=== PATIENT | male | born 1960 | race Caucasian/White ===

== ENCOUNTER 2021-05-03 12:56 | Inpatient (IN) | payer SELFPAY ==
[2021-05-03] MEDS ORDERED: Famotidine 20 MG/2 ML SDV IV PRN (14:00)
[2021-05-03] MEDS ORDERED: diphenhydrAMINE 50 MG/ML SDV IVPUSH PRN (14:00)
[2021-05-03] MEDS ORDERED: EPINEPHrine 1 MG/ML SDV IM PRN (14:00)
[2021-05-03] MEDS ORDERED: Acetaminophen 325 MG Tab PO PRN ×2 (14:00→14:54)
[2021-05-03] MEDS ORDERED: methylPREDNISolone Sodium Succinate 125 MG/2 ML SDV IVPUSH PRN (14:00)
--- NOTE | 2021-05-03 14:52 | PCM.HP.2 ---
H&P History of Present Illness - General Date of Service: 05/03/21 Admit Problem/Dx: Admission Diagnosis/Problem Admission Diagnosis/Problem Hypoxia Source of Information: Patient, RN Notes Reviewed History Limitations: Reports: No Limitations - History of Present Illness Initial Comments - Free Text/Narative: Mr. Nevarez is a 60-year-old gentleman who was admitted through the caregivers non medical unit with a 6-day history of progressive weakness and shortness of breath secondary to COVID-19 infection. He first experienced symptoms on April 27 with cough and congestion as well as myalgias. On the third he did take a [id number] Covid test that was positive. Symptoms progressed through the weekend and he arranged for monoclonal antibody infusion today in the outpatient area. On evaluation when he came in for an monoclonal antibody infusion he was found to be hypoxic with oxygen saturation of 81% on room air and while at rest. Monoclonal antibody infusion was canceled and I was asked to see him for an assessment for hospital admission. Laboratory tests obtained on admission included a normal white blood cell count, marked elevation in CRP, mild elevat ion in D-dimer. Chest x-ray shows bibasilar groundglass infiltrates consistent with COVID-19 infection. Generalized Pain Score (Numeric/FACES): 9 - Related Data Allergies/Adverse Reactions: Allergies Allergy/AdvReac Type Severity Reaction Status Date / Time No Known Allergies Allergy Verified 05/03/21 13:13 Home Medications: Home Meds Albuterol [Proventil Neb Soln] 3 ml INH QID PRN 05/03/21 [History] Omeprazole 40 mg PO DAILY 05/03/21 [History] Past Medical History Respiratory History: Reports: Asthma - Past Surgical History HEENT Surgical History: Reports: Other (See Below) Other HEENT Surgeries/Procedures: polyps in sinuses Social & Family History - Tobacco Use Tobacco Use Status *Q: Never Tobacco User - Caffeine Use Caffeine Use: Reports: Soda - Alcohol Use Days Per Week of Alcohol Use: 2 Number of Drinks Per Day: 2 Total Drinks Per Week: 4 - Recreational Drug Use Recreational Drug Use: No H&P Review of Systems - Review of Systems: Review Of Systems: See Below General: Reports: Fever, Chills, Malaise, Weakness, Fatigue, Decreased Appetite HEENT: Reports: Headaches, Sinus Congestion. Denies: Ear Pain, Eye Pain, Sore Throat Pulmonary: Reports: Shortness of Breath, Cough. Denies: Wheezing, Pleuritic Chest Pain, Sputum, Hemoptysis Cardiovascular: Reports: Dyspnea on Exertion. Denies: Chest Pain, Palpitations, Orthopnea, PND, Edema, Lightheadedness Gastrointestinal: Reports: No Symptoms Genitourinary: Reports: No Symptoms Musculoskeletal: Reports: Back Pain, Muscle Pain, Muscle Stiffness. Denies: Joint Swelling Skin: Reports: No Symptoms Psychiatric: Reports: No Symptoms Neurological: Reports: No Symptoms Hematologic/Lymphatic: Reports: No Symptoms Immunologic: Reports: No Symptoms Exam - Exam Exam: See Below - Vital Signs Vital Signs: Last Vital Signs Temp 214.2 F H 05/03/21 13:53 Pulse 114 H 05/03/21 14:08 Resp 24 H 05/03/21 14:08 BP 116/59 L 05/03/21 14:08 Pulse Ox 91 L 05/03/21 14:08 Weight: 245 lb - Exam Quality Assessment: Supplemental Oxygen, DVT Prophylaxis General: Alert, Oriented, Cooperative, Moderate Distress HEENT: Conjunctiva Clear, Hearing Intact, Mucosa Moist & Goree, Normal Nasal Septum, Posterior Pharynx Clear, Pupils Equal Neck: Supple, Trachea Midline, +2 Carotid Pulse wo Bruit Lungs: Crackles. No: Rales, Rhonchi, Wheezing Cardiovascular: Regular Rhythm, Normal S1, Normal S2, Tachycardia. No: Systolic Murmur, Diastolic Murmur GI/Abdominal Exam: Soft, Non-Tender, No Organomegaly, No Distention Back Exam: Normal Inspection, Full Range of Motion, Vertebral Tenderness Extremities: Non-Tender, No Pedal Edema Skin: Warm, Dry, Intact Neurological: Cranial Nerves Intact, Strength Equal Bilateral, Normal Speech, Normal Tone, Sensation Intact. No: Focal Deficit Neuro Extensive - Mental Status: Alert, Oriented x3, Normal Mood/Affect, Normal Cognition, Memory Intact - Patient Data Result Diagrams: 05/03/21 15:12 05/03/21 15:12 Sepsis Event Note - Focused Exam Vital Signs: Vital Signs Temp Pulse Resp BP Pulse Ox 05/03/21 14:08 114 H 24 H 116/59 L 91 L 05/03/21 13:53 214.2 F H 121 H 16 141/60 H 91 L 05/03/21 13:15 24 H 83 L 05/03/21 13:11 214.2 F H 129 H 16 120/63 88 L *Q Meaningful Use (ADM) - VTE Risk Assess *Q Each Risk Factor Represents 1 Point: Age 41 - 59 years, Obesity ( BMI > 25 kg/m2), Serious lung disease including pneumonia, Other Risk Factor (COVID-19) Total Score 1 Point Risk Factors: 4 Each Risk Factor Represents 2 Points: None Total Score 2 Point Risk Factors: 0 Each Risk Factor Represents 3 Points: None Total Score 3 Point Risk Factors: 0 Each Risk Factor Represents 5 Points: None Total Score 5 Point Risk Factors: 0 Venous Thromboembolism Risk Factor Score *Q: 4 Problem List Initiated/Reviewed/Updated: Yes Orders Last 24hrs: Active Orders 24 hr Category Date Time Status Patient Status Manage Transfer [TRANSFER] Routine ADT 05/03/21 14:38 Ordered Resuscitation Status Routine Resus Stat 05/03/21 14:39 Ordered Assessment/Plan Comment:: ASSESSMENT AND PLAN COVID-19 INFECTION WITH BILATERAL PNEUMONIA-associated with hypoxia. Monoclonal antibody infusion has been canceled and he will be admitted for further therapy. -Supplemental oxygen as needed -Prone positioning if able -Limit IV fluids -Dexamethasone 6 mg IV daily, today is day 1 -Remdesivir 200 mg IV today, followed by 100 mg IV daily for 4 days, today is day 1 of 5 ACUTE HYPOXIC RESPIRATORY FAILURE-secondary to COVID-19 infection with pneumonia -Management as above HISTORY OF ASTHMA-no wheezing noted on examination today -Albuterol inhaler as needed -Dexamethasone as above MAINTENANCE ISSUES -DVT prophylaxis; Lovenox 40 mg subcu daily -GI prophylaxis; not indicated -Trinh catheter; not indicated -Nutrition; regular diet -Nicotine dependence; not required CODE STATUS-FULL CODE ADMISSION STATUS-patient will be admitted to inpatient status, expect at least a 2 night hospital stay for evaluation and management of problems as outlined above. At the time of this admission I do not reasonably expected evaluation and management of this problem will require more than a 96 hour hospital stay. DISPOSITION-anticipate discharge to home after the hospital stay. PRIMARY CARE PROVIDER-Dr. Darian Martinez - Mortality Measure Prognosis:: Good
[2021-05-03] MEDS ORDERED: Sodium Chloride 0.9% 10 ML Syringe FLUSH PRN (14:54)
[2021-05-03] MEDS ORDERED: Polyethylene Glycol 3350 Powder 17 GM Packet PO PRN (14:54)
[2021-05-03] MEDS ORDERED: Ondansetron 4 MG/2 ML SDV IV PRN (14:54)
[2021-05-03] MEDS ORDERED: REMDESIVIR 200 MG in Sodium Chloride 0.9% 250 ML IV ONE ×2 (15:30→16:00)
[2021-05-03] MEDS: Dexamethasone 4 MG/ML SDV IVPUSH SCH (15:54)
[2021-05-03] MEDS: Albuterol 8 GM Inhaler INH SCH ×3 (15:56→23:05)
[2021-05-03] MEDS: Enoxaparin 40 MG/0.4 ML Syringe SUBCUT SCH (16:05)
--- NOTE | 2021-05-03 17:11 | CRLCR ---
For Patients: As a result of the Century Cures Act, medical imaging exams and procedure reports are released immediately into your electronic medical record. You may view this report before your referring provider. If you have questions, please contact your health care provider. INDICATION: COVID-19, hypoxia TECHNIQUE: Chest 1 view. COMPARISON: None FINDINGS: Cardiovascular and mediastinum: Heart size and vasculature are normal in caliber and appearance. Mediastinum is within normal limits. Lungs and pleural space: Follow up pulmonary infiltrates. No sign of pleural effusion. No pneumothorax. Bones and soft tissues: No significant findings. IMPRESSION: Bilateral pulmonary infiltrates. Dictated by Eder Motley MD @ 05/03/2021 5:09:16 PM (Electronically Signed)
[2021-05-03] MEDS ORDERED: Codeine/guaiFENesin 10-100 MG/5 ML Syrup 5 ML Cup PO PRN (21:38)
[2021-05-04] MEDS: Albuterol 8 GM Inhaler INH SCH ×6 (03:15→22:36)
--- NOTE | 2021-05-04 05:47 | PCM.SN.2 ---
- Free Text/Narrative Note: telephone call at [phone] 05/03/2021 S/O: request cough syrup A: cough with Covid 19 P: Robitussin AC 10 ml every 6 hours as needed for cough
[2021-05-04] MEDS ORDERED: Non-Formulary Medication 1 Each (Omeprazole [Omeprazole] 40 MG Cap.Cr) PO SCH (09:00)
[2021-05-04] MEDS: Pantoprazole 40 MG Tab.CR PO SCH (10:34)
[2021-05-04] MEDS: Codeine/guaiFENesin 10-100 MG/5 ML Syrup 5 ML Cup PO PRN (11:41)
[2021-05-04] MEDS: Enoxaparin 40 MG/0.4 ML Syringe SUBCUT SCH (16:12)
[2021-05-04] MEDS: Dexamethasone 4 MG/ML SDV IVPUSH SCH (16:12)
[2021-05-04] MEDS: REMDESIVIR 100 MG in Sodium Chloride 0.9% 100 ML IV SCH (16:13)
--- NOTE | 2021-05-04 16:23 | PCM.PN ---
- General Info Date of Service: 05/04/21 Subjective Update: Mr. Nevarez has unfortunately required increased levels of supplemental oxygen since admission yesterday. He is now on high flow humidified oxygen. Continues to experience cough which is only minimally productive. Functional Status: Reports: Urinating. Denies: Tolerating Diet, Ambulating - Review of Systems General: Reports: Fever, Weakness, Fatigue, Chills Pulmonary: Reports: Shortness of Breath, Cough. Denies: Pleuritic Chest Pain, Sputum, Hemoptysis, Wheezing Cardiovascular: Reports: Dyspnea on Exertion. Denies: Chest Pain, Palpitations, Orthopnea, PND, Edema, Lightheadedness Gastrointestinal: Reports: No Symptoms Genitourinary: Reports: No Symptoms - Patient Data Vitals - Most Recent: Last Vital Signs Temp 97.9 F 05/04/21 11:02 Pulse 92 05/04/21 11:02 Resp 22 H 05/04/21 11:02 BP 128/79 05/04/21 11:02 Pulse Ox 97 05/04/21 15:24 Weight - Most Recent: 244 lb 15.995 oz I&O - Last 24 Hours: Intake & Output 05/04/21 05/04/21 05/04/21 06:59 14:59 22:59 Intake Total 100 Balance 100 Lab Results Last 24 Hours: Laboratory Results - last 24 hr 05/04/21 Range/Units 09:25 Sodium 134 L (140-148) mmol/L Potassium 4.3 (3.6-5.2) mmol/L Chloride 100 (100-108) mmol/L Carbon Dioxide 22 (21-32) mmol/L Anion Gap 16.3 H (5.0-14.0) mmol/L BUN 28 H (7-18) mg/dL Creatinine 1.4 H (0.8-1.3) mg/dL Est Cr Clr Drug Dosing 60.51 mL/min Estimated GFR (MDRD) 52 L (>60) Glucose 216 H (74-106) mg/dL Calcium 8.6 (8.5-10.1) mg/dL Med Orders - Current: Current Medications Acetaminophen (Acetaminophen 325 Mg Tab) 650 mg PO Q4H PRN PRN Reason: Pain (Mild 1-3)/fever Last Admin: 05/03/21 15:13 Dose: 650 mg Documented by: Albuterol (Albuterol 8 Gm Inhaler) 0 gm INH Q4H [facility] Last Admin: 05/04/21 16:12 Dose: 2 puff Documented by: Baricitinib (Baricitinib 2 Mg Tab) 4 mg PO DAILY [facility] Stop: 05/17/21 09:01 Last Admin: 05/04/21 11:41 Dose: 4 mg Documented by: Dexamethasone (Dexamethasone 4 Mg/Ml Sdv) 6 mg IVPUSH Q24H [facility] Last Admin: 05/04/21 16:12 Dose: 6 mg Documented by: Enoxaparin Sodium (Enoxaparin 40 Mg/0.4 Ml Syringe) 40 mg SUBCUT Q24H [facility] Last Admin: 05/04/21 16:12 Dose: 40 mg Documented by: Guaifenesin/Codeine Phosphate (Codeine/Guaifenesin 10-100 Mg/5 Ml Syrup 5 Ml Cup) 10 ml PO Q6H PRN PRN Reason: Cough Last Admin: 05/04/21 11:41 Dose: 10 ml Documented by: Remdesivir 100 mg/ Sodium (Chloride) 100 mls @ 100 mls/hr IV Q24H [facility] Stop: 05/07/21 16:59 Last Admin: 05/04/21 16:13 Dose: 100 mls/hr Documented by: Ondansetron HCl (Ondansetron 4 Mg/2 Ml Sdv) 4 mg IV Q4H PRN PRN Reason: Nausea/Vomiting Oxycodone HCl (Oxycodone 5 Mg Tab) 5 mg PO Q4H PRN PRN Reason: Pain (moderate 4-6) Pantoprazole Sodium (Pantoprazole 40 Mg Tab.Cr) 40 mg PO ACBREAKFAST [facility] Last Admin: 05/04/21 10:34 Dose: Not Given Documented by: Polyethylene Glycol (Polyethylene Glycol 3350 Powder 17 Gm Packet) 17 gm PO DAILY PRN PRN Reason: Constipation Sodium Chloride (Sodium Chloride 0.9% 10 Ml Syringe) 10 ml FLUSH ASDIRECTED PRN PRN Reason: Keep Vein Open Discontinued Medications Guaifenesin/Codeine Phosphate (Codeine/Guaifenesin 10-100 Mg/5 Ml Syrup 5 Ml Cup) 5 ml PO Q6H PRN PRN Reason: Cough Last Admin: 05/03/21 21:57 Dose: 5 ml Documented by: Remdesivir 200 mg/ Sodium (Chloride) 250 mls @ 250 mls/hr IV ONETIME ONE Stop: 05/03/21 16:59 Last Admin: 05/03/21 16:06 Dose: 250 mls/hr Documented by: - Exam Quality Assessment: Supplemental Oxygen, DVT Prophylaxis General: Alert, Oriented, Cooperative, Moderate Distress Lungs: Crackles, Wheezing. No: Rales, Rhonchi Cardiovascular: Regular Rate, Regular Rhythm, No Murmurs GI/Abdominal Exam: Soft, Non-Tender, No Organomegaly, No Distention Extremities: Non-Tender, No Pedal Edema - Patient Data Lab Results Last 24 hrs: Laboratory Results - last 24 hr 05/04/21 Range/Units 09:25 Sodium 134 L (140-148) mmol/L Potassium 4.3 (3.6-5.2) mmol/L Chloride 100 (100-108) mmol/L Carbon Dioxide 22 (21-32) mmol/L Anion Gap 16.3 H (5.0-14.0) mmol/L BUN 28 H (7-18) mg/dL Creatinine 1.4 H (0.8-1.3) mg/dL Est Cr Clr Drug Dosing 60.51 mL/min Estimated GFR (MDRD) 52 L (>60) Glucose 216 H (74-106) mg/dL Calcium 8.6 (8.5-10.1) mg/dL Result Diagrams: 05/03/21 15:12 05/04/21 09:25 Sepsis Event Note - Evaluation Sepsis Screening Result: No Definite Risk - Focused Exam Vital Signs: Vital Signs Temp Pulse Resp BP Pulse Ox 05/04/21 15:24 97 05/04/21 15:20 97 05/04/21 12:19 92 L 05/04/21 12:18 92 L 05/04/21 11:02 97.9 F 92 22 H 128/79 86 L 05/04/21 07:53 97.4 F 88 24 H 134/84 92 L - Problem List Review Problem List Initiated/Reviewed/Updated: Yes - My Orders Last 24 Hours: My Active Orders 05/03/21 16:00 Enoxaparin [Lovenox] 40 mg SUBCUT Q24H 05/04/21 07:30 Pantoprazole [ProTONIX] 40 mg PO ACBREAKFAST 05/04/21 10:45 Baricitinib [Olumiant] 4 mg PO DAILY 05/04/21 16:00 Remdesivir 100 mg Sodium Chloride 0.9% [Normal Saline] 100 ml IV Q24H 05/05/21 05:00 CBC WITH AUTO DIFF [HEME] Timed COMPREHENSIVE METABOLIC PN,CMP [CHEM] Timed 05/05/21 05:11 CRP [C-REACTIVE PROTEIN] [CHEM] AM D Dimer [D-DIMER QUANTITATIVE] [COAG] AM - Plan Plan:: ASSESSMENT AND PLAN COVID-19 INFECTION WITH BILATERAL PNEUMONIA-associated with hypoxia. Since admission has required increased levels of oxygen support and was transitioned to high flow humidified oxygen this afternoon. -Continued high flow humidified oxygen -Prone positioning if able -Limit IV fluids -Dexamethasone 6 mg IV daily, today is day 2 -Remdesivir 200 mg IV today, followed by 100 mg IV daily for 4 days, today is day 2 of 5 -Baricitinib 4 mg p.o. daily, today is day 1 of 14 ACUTE HYPOXIC RESPIRATORY FAILURE-secondary to COVID-19 infection with pneumonia -Management as above HISTORY OF ASTHMA-no wheezing noted on examination today -Albuterol inhaler as needed -Dexamethasone as above MAINTENANCE ISSUES -DVT prophylaxis; Lovenox 40 mg subcu daily -GI prophylaxis; not indicated -Trinh catheter; not indicated -Nutrition; regular diet -Nicotine dependence; not required CODE STATUS-FULL CODE ADMISSION STATUS-patient will be admitted to inpatient status, expect at least a 2 night hospital stay for evaluation and management of problems as outlined ann marie carter. At the time of this admission I do not reasonably expected evaluation and management of this problem will require more than a 96 hour hospital stay. DISPOSITION-anticipate discharge to home after the hospital stay. PRIMARY CARE PROVIDER-Dr. Darian Martinez
[2021-05-04] MEDS: Benzocaine/Cetylpyridinium/Menthol Lozenge MUCMEM PRN (17:38)
[2021-05-04] MEDS: cefTRIAXone 1 GM in Sodium Chloride 0.9% 50 ML IV SCH (18:00)
[2021-05-04] MEDS ORDERED: Doxycycline 100 MG in Sodium Chloride 0.9% 100 ML IV SCH (19:00)
[2021-05-05] MEDS: Albuterol 8 GM Inhaler INH SCH ×6 (03:03→22:56)
[2021-05-05] MEDS: Pantoprazole 40 MG Tab.CR PO SCH (08:43)
[2021-05-05] MEDS: Doxycycline 100 MG in Sodium Chloride 0.9% 100 ML IV SCH ×2 (08:43→20:08)
[2021-05-05] MEDS: Codeine/guaiFENesin 10-100 MG/5 ML Syrup 5 ML Cup PO PRN (14:29)
[2021-05-05] MEDS: Dexamethasone 4 MG/ML SDV IVPUSH SCH (15:12)
[2021-05-05] MEDS: Enoxaparin 40 MG/0.4 ML Syringe SUBCUT SCH (15:12)
[2021-05-05] MEDS: REMDESIVIR 100 MG in Sodium Chloride 0.9% 100 ML IV SCH (15:12)
[2021-05-05] MEDS: cefTRIAXone 1 GM in Sodium Chloride 0.9% 50 ML IV SCH (17:17)
--- NOTE | 2021-05-05 18:25 | PCM.PN ---
- General Info Date of Service: 05/05/21 Subjective Update: Mr. Nevarez has continued to require high level of supplemental oxygen over the last 24 hours, during that period of time there is been no further worsening of respiratory status. Good improvement in D-dimer level and CRP from admission. Continues to experience significant cough, for the most part nonproductive. - Review of Systems General: Reports: Weakness, Fatigue. Denies: Fever, Chills Pulmonary: Reports: Shortness of Breath, Cough. Denies: Pleuritic Chest Pain, Sputum, Hemoptysis, Wheezing Cardiovascular: Reports: Dyspnea on Exertion. Denies: Chest Pain, Palpitations, Orthopnea, PND, Edema, Lightheadedness Gastrointestinal: Reports: No Symptoms Genitourinary: Reports: No Symptoms - Patient Data Vitals - Most Recent: Last Vital Signs Temp 96.2 F L 05/05/21 15:21 Pulse 78 05/05/21 15:21 Resp 24 H 05/05/21 15:21 BP 134/76 05/05/21 15:21 Pulse Ox 88 L 05/05/21 15:21 Weight - Most Recent: 244 lb 15.995 oz I&O - Last 24 Hours: Intake & Output 05/05/21 05/05/21 05/05/21 06:59 14:59 22:59 Intake Total 600 1050 Output Total 250 300 350 Balance -250 300 700 Lab Results Last 24 Hours: Laboratory Results - last 24 hr 05/05/21 05/05/21 05/05/21 Range/Units 05:55 05:55 05:55 WBC 8.3 (4.5-11.0) K/uL RBC 4.59 (4.30-5.90) M/uL Hgb 15.1 H (12.0-15.0) g/dL Hct 45.1 (40.0-54.0) % MCV 98 (80-98) fL MCH 33 H (27-31) pg MCHC 34 (32-36) % Plt Count 297 (150-400) K/uL Add Manual Diff Yes Neutrophils % (Manual) 86 H (36-66) % Lymphocytes % (Manual) 10 L (24-44) % Monocytes % (Manual) 4 (2-6) % Atypical Lymphocytes Few D-Dimer, Quantitative 681.14 H (0.0-500.0) ng/mL Sodium 139 L (140-148) mmol/L Potassium 4.8 (3.6-5.2) mmol/L Chloride 103 (100-108) mmol/L Carbon Dioxide 26 (21-32) mmol/L Anion Gap 14.8 H (5.0-14.0) mmol/L BUN 22 H (7-18) mg/dL Creatinine 1.1 (0.8-1.3) mg/dL Est Cr Clr Drug Dosing 76.70 mL/min Estimated GFR (MDRD) > 60 (>60) Glucose 160 H (74-106) mg/dL Calcium 8.7 (8.5-10.1) mg/dL Total Bilirubin 0.2 (0.2-1.0) mg/dL AST 43 H (15-37) U/L ALT 53 (12-78) U/L Alkaline Phosphatase 49 (46-116) U/L C-Reactive Protein (0.0-0.3) mg/dL Total Protein 7.5 (6.4-8.2) g/dL Albumin 2.8 L (3.4-5.0) g/dL Globulin 4.7 H (2.3-3.5) g/dL Albumin/Globulin Ratio 0.6 L (1.2-2.2) 05/05/21 Range/Units 05:55 WBC (4.5-11.0) K/uL RBC (4.30-5.90) M/uL Hgb (12.0-15.0) g/dL Hct (40.0-54.0) % MCV (80-98) fL MCH (27-31) pg MCHC (32-36) % Plt Count (150-400) K/uL Add Manual Diff Neutrophils % (Manual) (36-66) % Lymphocytes % (Manual) (24-44) % Monocytes % (Manual) (2-6) % Atypical Lymphocytes D-Dimer, Quantitative (0.0-500.0) ng/mL Sodium (140-148) mmol/L Potassium (3.6-5.2) mmol/L Chloride (100-108) mmol/L Carbon Dioxide (21-32) mmol/L Anion Gap (5.0-14.0) mmol/L BUN (7-18) mg/dL Creatinine (0.8-1.3) mg/dL Est Cr Clr Drug Dosing mL/min Estimated GFR (MDRD) (>60) Glucose (74-106) mg/dL Calcium (8.5-10.1) mg/dL Total Bilirubin (0.2-1.0) mg/dL AST (15-37) U/L ALT (12-78) U/L Alkaline Phosphatase (46-116) U/L C-Reactive Protein 9.66 H (0.0-0.3) mg/dL Total Protein (6.4-8.2) g/dL Albumin (3.4-5.0) g/dL Globulin (2.3-3.5) g/dL Albumin/Globulin Ratio (1.2-2.2) Med Orders - Current: Current Medications Acetaminophen (Acetaminophen 325 Mg Tab) 650 mg PO Q4H PRN PRN Reason: Pain (Mild 1-3)/fever Last Admin: 05/03/21 15:13 Dose: 650 mg Documented by: Albuterol (Albuterol 8 Gm Inhaler) 0 gm INH Q4H [facility] Last Admin: 05/05/21 15:12 Dose: 2 puff Documented by: Baricitinib (Baricitinib 2 Mg Tab) 4 mg PO DAILY [facility] Stop: 05/17/21 09:01 Last Admin: 05/05/21 08:42 Dose: 4 mg Documented by: Benzocaine/Menthol (Benzocaine/Cetylpyridinium/Menthol Lozenge) 1 lozenge MUCMEM Q1H PRN PRN Reason: Cough Last Admin: 05/04/21 17:38 Dose: 1 bryant Documented by: Dexamethasone (Dexamethasone 4 Mg/Ml Sdv) 6 mg IVPUSH Q24H [facility] Last Admin: 05/05/21 15:12 Dose: 6 mg Documented by: Enoxaparin Sodium (Enoxaparin 40 Mg/0.4 Ml Syringe) 40 mg SUBCUT Q24H [facility] Last Admin: 05/05/21 15:12 Dose: 40 mg Documented by: Guaifenesin/Codeine Phosphate (Codeine/Guaifenesin 10-100 Mg/5 Ml Syrup 5 Ml Cup) 10 ml PO Q6H PRN PRN Reason: Cough Last Admin: 05/05/21 14:29 Dose: 10 ml Documented by: Remdesivir 100 mg/ Sodium (Chloride) 100 mls @ 100 mls/hr IV Q24H [facility] Stop: 05/07/21 16:59 Last Admin: 05/05/21 15:12 Dose: 100 mls/hr Documented by: Ceftriaxone Sodium 1 gm/ (Sodium Chloride) 50 mls @ 100 mls/hr IV Q24H [facility] Last Admin: 05/05/21 17:17 Dose: 100 mls/hr Documented by: Doxycycline Hyclate 100 mg/ (Sodium Chloride) 100 mls @ 100 mls/hr IV Q12H [facility] Last Admin: 05/05/21 08:43 Dose: 100 mls/hr Documented by: Ondansetron HCl (Ondansetron 4 Mg/2 Ml Sdv) 4 mg IV Q4H PRN PRN Reason: Nausea/Vomiting Oxycodone HCl (Oxycodone 5 Mg Tab) 5 mg PO Q4H PRN PRN Reason: Pain (moderate 4-6) Pantoprazole Sodium (Pantoprazole 40 Mg Tab.Cr) 40 mg PO ACBREAKFAST [facility] Last Admin: 05/05/21 08:43 Dose: 40 mg Documented by: Polyethylene Glycol (Polyethylene Glycol 3350 Powder 17 Gm Packet) 17 gm PO DAILY PRN PRN Reason: Constipation Sodium Chloride (Sodium Chloride 0.9% 10 Ml Syringe) 10 ml FLUSH ASDIRECTED PRN PRN Reason: Keep Vein Open Discontinued Medications Guaifenesin/Codeine Phosphate (Codeine/Guaifenesin 10-100 Mg/5 Ml Syrup 5 Ml Cup) 5 ml PO Q6H PRN PRN Reason: Cough Last Admin: 05/03/21 21:57 Dose: 5 ml Documented by: Remdesivir 200 mg/ Sodium (Chloride) 250 mls @ 250 mls/hr IV ONETIME ONE Stop: 05/03/21 16:59 Last Admin: 05/03/21 16:06 Dose: 250 mls/hr Documented by: Doxycycline Hyclate 100 mg/ (Sodium Chloride) 100 mls @ 100 mls/hr IV Q12H [facility] Last Admin: 05/04/21 18:55 Dose: 100 mls/hr Documented by: - Exam Quality Assessment: Supplemental Oxygen, DVT Prophylaxis General: Alert, Oriented, Cooperative, Moderate Distress Lungs: Crackles. No: Rales, Rhonchi, Wheezing Cardiovascular: Regular Rate, Regular Rhythm, No Murmurs GI/Abdominal Exam: Soft, Non-Tender, No Organomegaly, No Distention Extremities: Non-Tender, No Pedal Edema - Patient Data Lab Results Last 24 hrs: Laboratory Results - last 24 hr 05/05/21 05/05/21 05/05/21 Range/Units 05:55 05:55 05:55 WBC 8.3 (4.5-11.0) K/uL RBC 4.59 (4.30-5.90) M/uL Hgb 15.1 H (12.0-15.0) g/dL Hct 45.1 (40.0-54.0) % MCV 98 (80-98) fL MCH 33 H (27-31) pg MCHC 34 (32-36) % Plt Count 297 (150-400) K/uL Add Manual Diff Yes Neutrophils % (Manual) 86 H (36-66) % Lymphocytes % (Manual) 10 L (24-44) % Monocytes % (Manual) 4 (2-6) % Atypical Lymphocytes Few D-Dimer, Quantitative 681.14 H (0.0-500.0) ng/mL Sodium 139 L (140-148) mmol/L Potassium 4.8 (3.6-5.2) mmol/L Chloride 103 (100-108) mmol/L Carbon Dioxide 26 (21-32) mmol/L Anion Gap 14.8 H (5.0-14.0) mmol/L BUN 22 H (7-18) mg/dL Creatinine 1.1 (0.8-1.3) mg/dL Est Cr Clr Drug Dosing 76.70 mL/min Estimated GFR (MDRD) > 60 (>60) Glucose 160 H (74-106) mg/dL Calcium 8.7 (8.5-10.1) mg/dL Total Bilirubin 0.2 (0.2-1.0) mg/dL AST 43 H (15-37) U/L ALT 53 (12-78) U/L Alkaline Phosphatase 49 (46-116) U/L C-Reactive Protein (0.0-0.3) mg/dL Total Protein 7.5 (6.4-8.2) g/dL Albumin 2.8 L (3.4-5.0) g/dL Globulin 4.7 H (2.3-3.5) g/dL Albumin/Globulin Ratio 0.6 L (1.2-2.2) 05/05/21 Range/Units 05:55 WBC (4.5-11.0) K/uL RBC (4.30-5.90) M/uL Hgb (12.0-15.0) g/dL Hct (40.0-54.0) % MCV (80-98) fL MCH (27-31) pg MCHC (32-36) % Plt Count (150-400) K/uL Add Manual Diff Neutrophils % (Manual) (36-66) % Lymphocytes % (Manual) (24-44) % Monocytes % (Manual) (2-6) % Atypical Lymphocytes D-Dimer, Quantitative (0.0-500.0) ng/mL Sodium (140-148) mmol/L Potassium (3.6-5.2) mmol/L Chloride (100-108) mmol/L Carbon Dioxide (21-32) mmol/L Anion Gap (5.0-14.0) mmol/L BUN (7-18) mg/dL Creatinine (0.8-1.3) mg/dL Est Cr Clr Drug Dosing mL/min Estimated GFR (MDRD) (>60) Glucose (74-106) mg/dL Calcium (8.5-10.1) mg/dL Total Bilirubin (0.2-1.0) mg/dL AST (15-37) U/L ALT (12-78) U/L Alkaline Phosphatase (46-116) U/L C-Reactive Protein 9.66 H (0.0-0.3) mg/dL Total Protein (6.4-8.2) g/dL Albumin (3.4-5.0) g/dL Globulin (2.3-3.5) g/dL Albumin/Globulin Ratio (1.2-2.2) Result Diagrams: 05/05/21 05:55 05/05/21 05:55 Sepsis Event Note - Evaluation Sepsis Screening Result: No Definite Risk - Focused Exam Vital Signs: Vital Signs Temp Pulse Resp BP BP Pulse Ox 05/05/21 15:21 96.2 F L 78 24 H 134/76 88 L 05/05/21 15:00 88 L 05/05/21 11:51 98.5 F 84 22 H 129/71 89 L 05/05/21 07:43 96 F L 77 22 H 122/68 89 L - Problem List Review Problem List Initiated/Reviewed/Updated: Yes - My Orders Last 24 Hours: My Active Orders 05/04/21 18:00 cefTRIAXone [Rocephin] 1 gm Sodium Chloride 0.9% [Normal Saline] 50 ml IV Q24H 05/05/21 08:00 Doxycycline [Vibramycin] 100 mg Sodium Chloride 0.9% [Normal Saline] 100 ml IV Q12H - Plan Plan:: ASSESSMENT AND PLAN COVID-19 INFECTION WITH BILATERAL PNEUMONIA-associated with hypoxia. Continues to require high flow humidified oxygen, no decline in respiratory status over the last 24 hours -Continue high flow humidified oxygen -Prone positioning if able -Limit IV fluids -Dexamethasone 6 mg IV daily, today is day 3 -Remdesivir 200 mg IV today, followed by 100 mg IV daily for 4 days, today is day 3 of 5 -Baricitinib 4 mg p.o. daily, today is day 2 of 14 -Empiric IV antibiotic therapy; doxycycline and ceftriaxone, today is day 2 of 7 ACUTE HYPOXIC RESPIRATORY FAILURE-secondary to COVID-19 infection with pneumonia -Management as above HISTORY OF ASTHMA-no wheezing noted on examination today -Albuterol inhaler as needed -Dexamethasone as above MAINTENANCE ISSUES -DVT prophylaxis; Lovenox 40 mg subcu daily -GI prophylaxis; not indicated -Trinh catheter; not indicated -Nutrition; regular diet -Nicotine dependence; not required CODE STATUS-FULL CODE ADMISSION STATUS-patient will be admitted to inpatient status, expect at least a 2 night hospital stay for evaluation and management of problems as outlined above. At the time of this admission I do not reasonably expected evaluation and management of this problem will require more than a 96 hour hospital stay. DISPOSITION-anticipate discharge to home after the hospital stay. PRIMARY CARE PROVIDER-Dr. Darian Martinez
[2021-05-06] MEDS: Albuterol 8 GM Inhaler INH SCH ×6 (02:49→22:53)
[2021-05-06] MEDS: Doxycycline 100 MG in Sodium Chloride 0.9% 100 ML IV SCH ×2 (08:15→19:24)
[2021-05-06] MEDS: Pantoprazole 40 MG Tab.CR PO SCH (08:15)
[2021-05-06] MEDS: Codeine/guaiFENesin 10-100 MG/5 ML Syrup 5 ML Cup PO PRN ×2 (10:52→23:05)
[2021-05-06] MEDS: Benzocaine/Cetylpyridinium/Menthol Lozenge MUCMEM PRN (14:12)
--- NOTE | 2021-05-06 14:33 | PCM.PN ---
- General Info Date of Service: 05/06/21 Subjective Update: Mr. Nevarez continues to require very high flow humidified oxygen and desaturates with even very minimal activity. Respiratory rate has remained stable, cough modestly improved over the last 24 hours. Functional Status: Reports: Urinating. Denies: Tolerating Diet, Ambulating - Review of Systems General: Reports: Weakness, Fatigue. Denies: Fever, Chills Pulmonary: Reports: Shortness of Breath, Cough. Denies: Sputum, Hemoptysis, Wheezing Cardiovascular: Reports: Dyspnea on Exertion. Denies: Chest Pain, Palpitations, Orthopnea, PND, Edema, Lightheadedness Gastrointestinal: Reports: No Symptoms Genitourinary: Reports: No Symptoms - Patient Data Vitals - Most Recent: Last Vital Signs Temp 96.1 F L 05/06/21 14:00 Pulse 84 05/06/21 14:00 Resp 18 05/06/21 14:00 BP 140/91 H 05/06/21 14:00 Pulse Ox 87 L 05/06/21 14:00 Weight - Most Recent: 244 lb 15.995 oz I&O - Last 24 Hours: Intake & Output 05/05/21 05/06/21 05/06/21 22:59 06:59 14:59 Intake Total 1250 450 260 Output Total 625 225 400 Balance 625 225 -140 Med Orders - Current: Current Medications Acetaminophen (Acetaminophen 325 Mg Tab) 650 mg PO Q4H PRN PRN Reason: Pain (Mild 1-3)/fever Last Admin: 05/03/21 15:13 Dose: 650 mg Documented by: Albuterol (Albuterol 8 Gm Inhaler) 0 gm INH Q4H [facility] Last Admin: 05/06/21 10:52 Dose: 2 puff Documented by: Baricitinib (Baricitinib 2 Mg Tab) 4 mg PO DAILY [facility] Stop: 05/17/21 09:01 Last Admin: 05/06/21 08:15 Dose: 4 mg Documented by: Benzocaine/Menthol (Benzocaine/Cetylpyridinium/Menthol Lozenge) 1 lozenge MUCMEM Q1H PRN PRN Reason: Cough Last Admin: 05/06/21 14:12 Dose: 1 bryant Documented by: Dexamethasone (Dexamethasone 4 Mg/Ml Sdv) 6 mg IVPUSH Q24H [facility] Last Admin: 05/05/21 15:12 Dose: 6 mg Documented by: Enoxaparin Sodium (Enoxaparin 40 Mg/0.4 Ml Syringe) 40 mg SUBCUT Q24H [facility] Last Admin: 05/05/21 15:12 Dose: 40 mg Documented by: Guaifenesin/Codeine Phosphate (Codeine/Guaifenesin 10-100 Mg/5 Ml Syrup 5 Ml Cup) 10 ml PO Q6H PRN PRN Reason: Cough Last Admin: 05/06/21 10:52 Dose: 10 ml Documented by: Remdesivir 100 mg/ Sodium (Chloride) 100 mls @ 100 mls/hr IV Q24H [facility] Stop: 05/07/21 16:59 Last Admin: 05/05/21 15:12 Dose: 100 mls/hr Documented by: Ceftriaxone Sodium 1 gm/ (Sodium Chloride) 50 mls @ 100 mls/hr IV Q24H [facility] Last Admin: 05/05/21 17:17 Dose: 100 mls/hr Documented by: Doxycycline Hyclate 100 mg/ (Sodium Chloride) 100 mls @ 100 mls/hr IV Q12H [facility] Last Admin: 05/06/21 08:15 Dose: 100 mls/hr Documented by: Ondansetron HCl (Ondansetron 4 Mg/2 Ml Sdv) 4 mg IV Q4H PRN PRN Reason: Nausea/Vomiting Oxycodone HCl (Oxycodone 5 Mg Tab) 5 mg PO Q4H PRN PRN Reason: Pain (moderate 4-6) Pantoprazole Sodium (Pantoprazole 40 Mg Tab.Cr) 40 mg PO ACBREAKFAST [facility] Last Admin: 05/06/21 08:15 Dose: 40 mg Documented by: Polyethylene Glycol (Polyethylene Glycol 3350 Powder 17 Gm Packet) 17 gm PO DAILY PRN PRN Reason: Constipation Sodium Chloride (Sodium Chloride 0.9% 10 Ml Syringe) 10 ml FLUSH ASDIRECTED PRN PRN Reason: Keep Vein Open Discontinued Medications Guaifenesin/Codeine Phosphate (Codeine/Guaifenesin 10-100 Mg/5 Ml Syrup 5 Ml Cup) 5 ml PO Q6H PRN PRN Reason: Cough Last Admin: 05/03/21 21:57 Dose: 5 ml Documented by: Remdesivir 200 mg/ Sodium (Chloride) 250 mls @ 250 mls/hr IV ONETIME ONE Stop: 05/03/21 16:59 Last Admin: 05/03/21 16:06 Dose: 250 mls/hr Documented by: Doxycycline Hyclate 100 mg/ (Sodium Chloride) 100 mls @ 100 mls/hr IV Q12H [facility] Last Admin: 05/04/21 18:55 Dose: 100 mls/hr Documented by: - Exam Quality Assessment: Supplemental Oxygen, DVT Prophylaxis General: Alert, Oriented, Cooperative, Moderate Distress Lungs: Crackles. No: Rales, Rhonchi, Wheezing Cardiovascular: Regular Rate, Regular Rhythm, No Murmurs GI/Abdominal Exam: Soft, Non-Tender, No Organomegaly, No Distention Extremities: Non-Tender, No Pedal Edema - Patient Data Result Diagrams: 05/05/21 05:55 05/05/21 05:55 Sepsis Event Note - Evaluation Sepsis Screening Result: No Definite Risk - Focused Exam Vital Signs: Vital Signs Temp Pulse Resp BP BP Pulse Ox 05/06/21 14:00 96.1 F L 84 18 140/91 H 87 L 05/06/21 10:48 97.2 F 90 20 136/71 85 L 05/06/21 08:00 96.1 F L 80 16 147/83 H 87 L 05/06/21 02:50 95.3 F L 76 18 130/68 90 L - Problem List Review Problem List Initiated/Reviewed/Updated: Yes - My Orders Last 24 Hours: My Active Orders 05/07/21 05:00 CBC WITH AUTO DIFF [HEME] Timed COMPREHENSIVE METABOLIC PN,CMP [CHEM] Timed 05/07/21 05:11 CRP [C-REACTIVE PROTEIN] [CHEM] AM D Dimer [D-DIMER QUANTITATIVE] [COAG] AM - Plan Plan:: ASSESSMENT AND PLAN COVID-19 INFECTION WITH BILATERAL PNEUMONIA-associated with hypoxia. Continues to require high flow humidified oxygen, experiences severe desaturation with even very minimal activity -Continue high flow humidified oxygen -Prone positioning if able -Limit IV fluids -Dexamethasone 6 mg IV daily, today is day 4 -Remdesivir 200 mg IV today, followed by 100 mg IV daily for 4 days, today is day 4 of 5 -Baricitinib 4 mg p.o. daily, today is day 3 of 14 -Empiric IV antibiotic therapy; doxycycline and ceftriaxone, today is day 3 of 7 ACUTE HYPOXIC RESPIRATORY FAILURE-secondary to COVID-19 infection with pneumonia -Management as above HISTORY OF ASTHMA-no wheezing noted on examination today -Albuterol inhaler as needed -Dexamethasone as above MAINTENANCE ISSUES -DVT prophylaxis; Lovenox 40 mg subcu daily -GI prophylaxis; not indicated -Trinh catheter; not indicated -Nutrition; regular diet -Nicotine dependence; not required CODE STATUS-FULL CODE ADMISSION STATUS-patient will be admitted to inpatient status, expect at least a 2 night hospital stay for evaluation and management of problems as outlined above. At the time of this admission I do not reasonably expected evaluation and management of this problem will require more than a 96 hour hospital stay. DISPOSITION-anticipate discharge to home after the hospital stay. PRIMARY CARE PROVIDER-Dr. Darian Martinez
[2021-05-06] MEDS: Dexamethasone 4 MG/ML SDV IVPUSH SCH (15:35)
[2021-05-06] MEDS: Enoxaparin 40 MG/0.4 ML Syringe SUBCUT SCH (15:35)
[2021-05-06] MEDS: REMDESIVIR 100 MG in Sodium Chloride 0.9% 100 ML IV SCH (15:35)
[2021-05-06] MEDS: cefTRIAXone 1 GM in Sodium Chloride 0.9% 50 ML IV SCH (17:33)
[2021-05-07] MEDS: Albuterol 8 GM Inhaler INH SCH ×6 (03:40→22:32)
[2021-05-07] MEDS: oxyCODONE 5 MG Tab PO PRN ×2 (07:39→16:28)
[2021-05-07] MEDS: Pantoprazole 40 MG Tab.CR PO SCH (07:40)
[2021-05-07] MEDS: Codeine/guaiFENesin 10-100 MG/5 ML Syrup 5 ML Cup PO PRN ×2 (07:41→16:28)
[2021-05-07] MEDS: Doxycycline 100 MG in Sodium Chloride 0.9% 100 ML IV SCH ×2 (07:45→20:12)
[2021-05-07] MEDS ORDERED: Furosemide 40 MG/4 ML VIAL IVPUSH ONE (14:34)
--- NOTE | 2021-05-07 14:37 | PCM.PN ---
- General Info Date of Service: 05/07/21 Subjective Update: Mr. Nevarez has continued to require very high flow humidified oxygen since yesterday. There is been no significant improvement or deterioration of respiratory status over the last 2 days. He remains very weak, with poor appetite and intake. Functional Status: Reports: Urinating. Denies: Tolerating Diet, Ambulating - Review of Systems General: Reports: Weakness, Fatigue. Denies: Fever, Chills Pulmonary: Reports: Shortness of Breath, Cough. Denies: Pleuritic Chest Pain, Sputum, Hemoptysis, Wheezing Cardiovascular: Reports: Dyspnea on Exertion. Denies: Chest Pain, Palpitations, Orthopnea, PND, Edema, Lightheadedness Gastrointestinal: Reports: No Symptoms Genitourinary: Reports: No Symptoms - Patient Data Vitals - Most Recent: Last Vital Signs Temp 97.2 F 05/07/21 12:00 Pulse 75 05/07/21 12:00 Resp 18 05/07/21 12:00 BP 150/84 H 05/07/21 12:00 Pulse Ox 90 L 05/07/21 12:00 Weight - Most Recent: 244 lb 15.995 oz I&O - Last 24 Hours: Intake & Output 05/06/21 05/07/21 05/07/21 22:59 06:59 14:59 Intake Total 480 700 Output Total 650 300 350 Balance -650 180 350 Lab Results Last 24 Hours: Laboratory Results - last 24 hr 05/07/21 05/07/21 05/07/21 Range/Units 05:00 05:00 05:00 WBC 8.3 (4.5-11.0) K/uL RBC 4.19 L (4.30-5.90) M/uL Hgb 13.9 (12.0-15.0) g/dL Hct 41.0 (40.0-54.0) % MCV 98 (80-98) fL MCH 33 H (27-31) pg MCHC 34 (32-36) % Plt Count 353 (150-400) K/uL Neut % (Auto) 83.1 H (36-66) % Lymph % (Auto) 10.2 L (24-44) % Marin % (Auto) 6.6 H (2-6) % Eos % (Auto) 0.0 L (2-4) % Baso % (Auto) 0.1 (0-1) % D-Dimer, Quantitative 825.05 H (0.0-500.0) ng/mL Sodium 138 L (140-148) mmol/L Potassium 3.8 (3.6-5.2) mmol/L Chloride 103 (100-108) mmol/L Carbon Dioxide 26 (21-32) mmol/L Anion Gap 12.8 (5.0-14.0) mmol/L BUN 17 (7-18) mg/dL Creatinine 0.9 (0.8-1.3) mg/dL Est Cr Clr Drug Dosing 93.74 mL/min Estimated GFR (MDRD) > 60 (>60) Glucose 121 H (74-106) mg/dL Calcium 8.3 L (8.5-10.1) mg/dL Total Bilirubin 0.5 D (0.2-1.0) mg/dL AST 116 H D (15-37) U/L ALT 162 H (12-78) U/L Alkaline Phosphatase 56 (46-116) U/L C-Reactive Protein (0.0-0.3) mg/dL Total Protein 6.7 (6.4-8.2) g/dL Albumin 2.6 L (3.4-5.0) g/dL Globulin 4.1 H (2.3-3.5) g/dL Albumin/Globulin Ratio 0.6 L (1.2-2.2) 05/07/21 Range/Units 05:00 WBC (4.5-11.0) K/uL RBC (4.30-5.90) M/uL Hgb (12.0-15.0) g/dL Hct (40.0-54.0) % MCV (80-98) fL MCH (27-31) pg MCHC (32-36) % Plt Count (150-400) K/uL Neut % (Auto) (36-66) % Lymph % (Auto) (24-44) % Marin % (Auto) (2-6) % Eos % (Auto) (2-4) % Baso % (Auto) (0-1) % D-Dimer, Quantitative (0.0-500.0) ng/mL Sodium (140-148) mmol/L Potassium (3.6-5.2) mmol/L Chloride (100-108) mmol/L Carbon Dioxide (21-32) mmol/L Anion Gap (5.0-14.0) mmol/L BUN (7-18) mg/dL Creatinine (0.8-1.3) mg/dL Est Cr Clr Drug Dosing mL/min Estimated GFR (MDRD) (>60) Glucose (74-106) mg/dL Calcium (8.5-10.1) mg/dL Total Bilirubin (0.2-1.0) mg/dL AST (15-37) U/L ALT (12-78) U/L Alkaline Phosphatase (46-116) U/L C-Reactive Protein 2.94 H (0.0-0.3) mg/dL Total Protein (6.4-8.2) g/dL Albumin (3.4-5.0) g/dL Globulin (2.3-3.5) g/dL Albumin/Globulin Ratio (1.2-2.2) Med Orders - Current: Current Medications Acetaminophen (Acetaminophen 325 Mg Tab) 650 mg PO Q4H PRN PRN Reason: Pain (Mild 1-3)/fever Last Admin: 05/03/21 15:13 Dose: 650 mg Documented by: Albuterol (Albuterol 8 Gm Inhaler) 0 gm INH Q4H SHAKILA Last Admin: 05/07/21 12:16 Dose: 2 puff Documented by: Baricitinib (Baricitinib 2 Mg Tab) 4 mg PO DAILY SHAKILA Stop: 05/17/21 09:01 Last Admin: 05/07/21 08:03 Dose: 4 mg Documented by: Benzocaine/Menthol (Benzocaine/Cetylpyridinium/Menthol Lozenge) 1 lozenge MUCMEM Q1H PRN PRN Reason: Cough Last Admin: 05/06/21 14:12 Dose: 1 bryant Documented by: Dexamethasone (Dexamethasone 4 Mg/Ml Sdv) 6 mg IVPUSH Q24H SHAKILA Last Admin: 05/06/21 15:35 Dose: 6 mg Documented by: Enoxaparin Sodium (Enoxaparin 40 Mg/0.4 Ml Syringe) 40 mg SUBCUT Q24H SHAKILA Last Admin: 05/06/21 15:35 Dose: 40 mg Documented by: Furosemide (Furosemide 40 Mg/4 Ml Vial) 20 mg IVPUSH NOW ONE Stop: 05/07/21 14:35 Guaifenesin/Codeine Phosphate (Codeine/Guaifenesin 10-100 Mg/5 Ml Syrup 5 Ml Cup) 10 ml PO Q6H PRN PRN Reason: Cough Last Admin: 05/07/21 07:41 Dose: 10 ml Documented by: Remdesivir 100 mg/ Sodium (Chloride) 100 mls @ 100 mls/hr IV Q24H SHAKILA Stop: 05/07/21 16:59 Last Admin: 05/06/21 15:35 Dose: 100 mls/hr Documented by: Ceftriaxone Sodium 1 gm/ (Sodium Chloride) 50 mls @ 100 mls/hr IV Q24H [facility] Last Admin: 05/06/21 17:33 Dose: 100 mls/hr Documented by: Doxycycline Hyclate 100 mg/ (Sodium Chloride) 100 mls @ 100 mls/hr IV Q12H [facility] Last Admin: 05/07/21 07:45 Dose: 100 mls/hr Documented by: Ondansetron HCl (Ondansetron 4 Mg/2 Ml Sdv) 4 mg IV Q4H PRN PRN Reason: Nausea/Vomiting Oxycodone HCl (Oxycodone 5 Mg Tab) 5 mg PO Q4H PRN PRN Reason: Pain (moderate 4-6) Last Admin: 05/07/21 07:39 Dose: 5 mg Documented by: Pantoprazole Sodium (Pantoprazole 40 Mg Tab.Cr) 40 mg PO AC[facility]AKFAST [facility] Last Admin: 05/07/21 07:40 Dose: 40 mg Documented by: Polyethylene Glycol (Polyethylene Glycol 3350 Powder 17 Gm Packet) 17 gm PO DAILY PRN PRN Reason: Constipation Sodium Chloride (Sodium Chloride 0.9% 10 Ml Syringe) 10 ml FLUSH ASDIRECTED PRN PRN Reason: Keep Vein Open Discontinued Medications Guaifenesin/Codeine Phosphate (Codeine/Guaifenesin 10-100 Mg/5 Ml Syrup 5 Ml Cup) 5 ml PO Q6H PRN PRN Reason: Cough Last Admin: 05/03/21 21:57 Dose: 5 ml Documented by: Remdesivir 200 mg/ Sodium (Chloride) 250 mls @ 250 mls/hr IV ONETIME ONE Stop: 05/03/21 16:59 Last Admin: 05/03/21 16:06 Dose: 250 mls/hr Documented by: Doxycycline Hyclate 100 mg/ (Sodium Chloride) 100 mls @ 100 mls/hr IV Q12H SHAKILA Last Admin: 05/04/21 18:55 Dose: 100 mls/hr Documented by: - Exam Quality Assessment: Supplemental Oxygen, DVT Prophylaxis General: Alert, Oriented, Cooperative, Moderate Distress Lungs: Crackles. No: Rales, Rhonchi, Wheezing Cardiovascular: Regular Rate, Regular Rhythm, No Murmurs GI/Abdominal Exam: Soft, Non-Tender, No Organomegaly, No Distention Extremities: Non-Tender, No Pedal Edema - Patient Data Lab Results Last 24 hrs: Laboratory Results - last 24 hr 05/07/21 05/07/21 05/07/21 Range/Units 05:00 05:00 05:00 WBC 8.3 (4.5-11.0) K/uL RBC 4.19 L (4.30-5.90) M/uL Hgb 13.9 (12.0-15.0) g/dL Hct 41.0 (40.0-54.0) % MCV 98 (80-98) fL MCH 33 H (27-31) pg MCHC 34 (32-36) % Plt Count 353 (150-400) K/uL Neut % (Auto) 83.1 H (36-66) % Lymph % (Auto) 10.2 L (24-44) % Marin % (Auto) 6.6 H (2-6) % Eos % (Auto) 0.0 L (2-4) % Baso % (Auto) 0.1 (0-1) % D-Dimer, Quantitative 825.05 H (0.0-500.0) ng/mL Sodium 138 L (140-148) mmol/L Potassium 3.8 (3.6-5.2) mmol/L Chloride 103 (100-108) mmol/L Carbon Dioxide 26 (21-32) mmol/L Anion Gap 12.8 (5.0-14.0) mmol/L BUN 17 (7-18) mg/dL Creatinine 0.9 (0.8-1.3) mg/dL Est Cr Clr Drug Dosing 93.74 mL/min Estimated GFR (MDRD) > 60 (>60) Glucose 121 H (74-106) mg/dL Calcium 8.3 L (8.5-10.1) mg/dL Total Bilirubin 0.5 D (0.2-1.0) mg/dL AST 116 H D (15-37) U/L ALT 162 H (12-78) U/L Alkaline Phosphatase 56 (46-116) U/L C-Reactive Protein (0.0-0.3) mg/dL Total Protein 6.7 (6.4-8.2) g/dL Albumin 2.6 L (3.4-5.0) g/dL Globulin 4.1 H (2.3-3.5) g/dL Albumin/Globulin Ratio 0.6 L (1.2-2.2) 05/07/21 Range/Units 05:00 WBC (4.5-11.0) K/uL RBC (4.30-5.90) M/uL Hgb (12.0-15.0) g/dL Hct (40.0-54.0) % MCV (80-98) fL MCH (27-31) pg MCHC (32-36) % Plt Count (150-400) K/uL Neut % (Auto) (36-66) % Lymph % (Auto) (24-44) % Marin % (Auto) (2-6) % Eos % (Auto) (2-4) % Baso % (Auto) (0-1) % D-Dimer, Quantitative (0.0-500.0) ng/mL Sodium (140-148) mmol/L Potassium (3.6-5.2) mmol/L Chloride (100-108) mmol/L Carbon Dioxide (21-32) mmol/L Anion Gap (5.0-14.0) mmol/L BUN (7-18) mg/dL Creatinine (0.8-1.3) mg/dL Est Cr Clr Drug Dosing mL/min Estimated GFR (MDRD) (>60) Glucose (74-106) mg/dL Calcium (8.5-10.1) mg/dL Total Bilirubin (0.2-1.0) mg/dL AST (15-37) U/L ALT (12-78) U/L Alkaline Phosphatase (46-116) U/L C-Reactive Protein 2.94 H (0.0-0.3) mg/dL Total Protein (6.4-8.2) g/dL Albumin (3.4-5.0) g/dL Globulin (2.3-3.5) g/dL Albumin/Globulin Ratio (1.2-2.2) Result Diagrams: 05/07/21 05:00 05/07/21 05:00 Sepsis Event Note - Evaluation Sepsis Screening Result: No Definite Risk - Focused Exam Vital Signs: Vital Signs Temp Pulse Resp BP Pulse Ox 05/07/21 12:00 97.2 F 75 18 150/84 H 90 L 05/07/21 07:00 96.5 F L 72 20 90 L - Problem List Review Problem List Initiated/Reviewed/Updated: Yes - My Orders Last 24 Hours: My Active Orders 05/07/21 14:34 Furosemide [Lasix] 20 mg IVPUSH NOW ONE - Plan Plan:: ASSESSMENT AND PLAN COVID-19 INFECTION WITH BILATERAL PNEUMONIA-associated with hypoxia. Continues to require high flow humidified oxygen, experiences severe desaturation with even very minimal activity -Continue high flow humidified oxygen -Prone positioning if able -Limit IV fluids -Dexamethasone 6 mg IV daily, today is day 5 -Remdesivir 200 mg IV today, followed by 100 mg IV daily for 4 days, today is day 5 of 5 -Baricitinib 4 mg p.o. daily, today is day 4 of 14 -Empiric IV antibiotic therapy; doxycycline and ceftriaxone, today is day 4 of 7 -Furosemide 20 mg IV today, reassess in a.m. ACUTE HYPOXIC RESPIRATORY FAILURE-secondary to COVID-19 infection with pneumonia -Management as above HISTORY OF ASTHMA-no wheezing noted on examination today -Albuterol inhaler as needed -Dexamethasone as above MAINTENANCE ISSUES -DVT prophylaxis; Lovenox 40 mg subcu daily -GI prophylaxis; not indicated -Trinh catheter; not indicated -Nutrition; regular diet -Nicotine dependence; not required CODE STATUS-FULL CODE ADMISSION STATUS-patient will be admitted to inpatient status, expect at least a 2 night hospital stay for evaluation and management of problems as outlined above. At the time of this admission I do not reasonably expected evaluation and management of this problem will require more than a 96 hour hospital stay. DISPOSITION-anticipate discharge to home after the hospital stay. PRIMARY CARE PROVIDER-Dr. Darian Martinez
[2021-05-07] MEDS: Enoxaparin 40 MG/0.4 ML Syringe SUBCUT SCH (16:11)
[2021-05-07] MEDS: REMDESIVIR 100 MG in Sodium Chloride 0.9% 100 ML IV SCH (16:12)
[2021-05-07] MEDS: Dexamethasone 4 MG/ML SDV IVPUSH SCH (16:12)
[2021-05-07] MEDS: LORazepam 0.5 MG Tab PO PRN (17:59)
[2021-05-07] MEDS: cefTRIAXone 1 GM in Sodium Chloride 0.9% 50 ML IV SCH (18:00)
[2021-05-08] MEDS: Codeine/guaiFENesin 10-100 MG/5 ML Syrup 5 ML Cup PO PRN ×2 (01:36→09:03)
[2021-05-08] MEDS: oxyCODONE 5 MG Tab PO PRN (01:36)
[2021-05-08] MEDS: Albuterol 8 GM Inhaler INH SCH ×6 (03:51→19:25)
[2021-05-08] MEDS: LORazepam 0.5 MG Tab PO PRN ×2 (05:02→12:20)
[2021-05-08] MEDS: Pantoprazole 40 MG Tab.CR PO SCH (08:36)
[2021-05-08] MEDS: Doxycycline 100 MG in Sodium Chloride 0.9% 100 ML IV SCH (08:38)
[2021-05-08] MEDS: Dexamethasone 4 MG/ML SDV IVPUSH SCH (14:57)
[2021-05-08] MEDS: Enoxaparin 40 MG/0.4 ML Syringe SUBCUT SCH (15:01)
[2021-05-08] MEDS ORDERED: propofoL 100 ML ONE (15:11)
[2021-05-08] MEDS ORDERED: Heparin Sodium 5,000 UNITS in Sodium Chloride 0.9% 500 ML IV SCH ×2 (15:15→16:00)
[2021-05-08] MEDS ORDERED: Succinylcholine 200 MG/10 ML MDV ONE (15:25)
[2021-05-08] MEDS ORDERED: Propofol 200 MG/20 ML SDV ONE (15:25)
--- NOTE | 2021-05-08 16:31 | ANES ---
DATE OF SERVICE: 05/08/2021 TIME: 15:30. I was called to the Intensive Care Unit by Dr. Lutz to evaluate Mr. Nevarez for an intubation due to respiratory distress. Of note, he is COVID-positive. All proper protective equipment was worn. I did give him 200 mg of propofol with 100 mg of succinylcholine and intubated him with a 3.0 MAC as well as an 8.0 endotracheal tube. He had bilateral breath sounds bilaterally and his end-tidal CO2 was positive. The ET tube was then secured by the respiratory therapy staff at 23 cm at the lip. Attention was then turned to the left radial artery where I did put a 20-gauge Arrow left radial art line in. He was prepped with chlorhexidine and the art line was sutured to the end with 2-0 Prolene and a Tegaderm tape was placed. He had good blood return and he had good waveform. Scott Garcia CRNA /[id number]
[2021-05-08] MEDS ORDERED: Pantoprazole 40 MG Vial IVPUSH SCH (16:45)
[2021-05-08] MEDS ORDERED: propofoL 100 ML IV SCH (16:45)
[2021-05-08] MEDS ORDERED: Meropenem 1 GM in Sodium Chloride 0.9% 100 ML IV SCH (17:00)
[2021-05-08] MEDS ORDERED: Vancomycin 1 GM SDV IV SCH (17:00)
--- NOTE | 2021-05-08 17:09 | PCM.PN ---
- General Info Date of Service: 05/08/21 Subjective Update: Mr. Nevarez unfortunately experienced decline in his respiratory status this afternoon with decreased oxygen saturations into the upper 70s and low 80s associated with increase in respiratory rate to the mid 30s. He was given some time to recover but unfortunately never did. I discussed this with him and he was agreeable to proceed with intubation and mechanical ventilation. Intubation was performed by Mr. Garcia from the anesthesia service and an arterial line has also been placed. He is stable following intubation and oxygenation has slowly improved. - Review of Systems General: Reports: Weakness, Fatigue. Denies: Fever, Chills Pulmonary: Reports: Shortness of Breath, Cough. Denies: Pleuritic Chest Pain, Sputum, Hemoptysis, Wheezing Cardiovascular: Reports: Dyspnea on Exertion. Denies: Chest Pain, Palpitations, Orthopnea, PND, Edema, Lightheadedness Gastrointestinal: Reports: No Symptoms Genitourinary: Reports: No Symptoms Psychiatric: Reports: Anxiety - Patient Data Vitals - Most Recent: Last Vital Signs Temp 99 F 05/08/21 16:00 Pulse 111 H 05/08/21 15:04 Resp 16 05/08/21 16:00 BP 83/52 L 05/08/21 16:00 Pulse Ox 94 L 05/08/21 16:00 Weight - Most Recent: 233 lb I&O - Last 24 Hours: Intake & Output 05/08/21 05/08/21 05/08/21 06:59 14:59 22:59 Intake Total 240 Output Total 350 100 Balance -110 -100 Lab Results Last 24 Hours: Laboratory Results - last 24 hr 05/08/21 05/08/21 05/08/21 Range/Units 13:49 13:49 13:49 WBC 14.1 H (4.5-11.0) K/uL RBC 4.73 (4.30-5.90) M/uL Hgb 15.4 H (12.0-15.0) g/dL Hct 46.2 (40.0-54.0) % MCV 98 (80-98) fL MCH 33 H (27-31) pg MCHC 33 (32-36) % Plt Count 483 H (150-400) K/uL Neut % (Auto) 73.4 H (36-66) % Lymph % (Auto) 18.8 L (24-44) % Overton % (Auto) 6.3 H (2-6) % Eos % (Auto) 0.9 L (2-4) % Baso % (Auto) 0.6 (0-1) % D-Dimer, Quantitative (0.0-500.0) ng/mL Puncture Site ABG pH (7.350-7.450) ABG pCO2 (35.0-42.0) mmHg ABG pO2 (75.0-100.0) mmHg ABG HCO3 (22.0-26.0) mmol/L ABG Total CO2 (23.0-27.0) mmol/L ABG O2 Saturation (95.0-98.0) % ABG O2 Content (15.0-23.0) %vol ABG Base Excess mm/L ABG Hemoglobin (13.5-18.0) g/dL ABG Oxyhemoglobin % ABG Carboxyhemoglobin (0.0-1.6) % ABG Methemoglobin % Petros Test O2 Delivery Device Oxygen Flow Rate L Sodium 135 L (140-148) mmol/L Potassium 3.9 (3.6-5.2) mmol/L Chloride 97 L (100-108) mmol/L Carbon Dioxide 24 (21-32) mmol/L Anion Gap 17.9 H (5.0-14.0) mmol/L BUN 17 (7-18) mg/dL Creatinine 1.2 (0.8-1.3) mg/dL Est Cr Clr Drug Dosing 70.30 mL/min Estimated GFR (MDRD) > 60 (>60) Glucose 109 H (74-106) mg/dL Lactic Acid (0.4-2.0) mmol/L Calcium 9.0 (8.5-10.1) mg/dL Creatine Kinase (39-308) U/L Troponin I High Sens (<=60.3) pg/mL Procalcitonin 0.05 ng/mL 05/08/21 05/08/21 05/08/21 Range/Units 13:49 13:49 13:49 WBC (4.5-11.0) K/uL RBC (4.30-5.90) M/uL Hgb (12.0-15.0) g/dL Hct (40.0-54.0) % MCV (80-98) fL MCH (27-31) pg MCHC (32-36) % Plt Count (150-400) K/uL Neut % (Auto) (36-66) % Lymph % (Auto) (24-44) % Overton % (Auto) (2-6) % Eos % (Auto) (2-4) % Baso % (Auto) (0-1) % D-Dimer, Quantitative 1002.84 H (0.0-500.0) ng/mL Puncture Site ABG pH (7.350-7.450) ABG pCO2 (35.0-42.0) mmHg ABG pO2 (75.0-100.0) mmHg ABG HCO3 (22.0-26.0) mmol/L ABG Total CO2 (23.0-27.0) mmol/L ABG O2 Saturation (95.0-98.0) % ABG O2 Content (15.0-23.0) %vol ABG Base Excess mm/L ABG Hemoglobin (13.5-18.0) g/dL ABG Oxyhemoglobin % ABG Carboxyhemoglobin (0.0-1.6) % ABG Methemoglobin % Petros Test O2 Delivery Device Oxygen Flow Rate L Sodium (140-148) mmol/L Potassium (3.6-5.2) mmol/L Chloride (100-108) mmol/L Carbon Dioxide (21-32) mmol/L Anion Gap (5.0-14.0) mmol/L BUN (7-18) mg/dL Creatinine (0.8-1.3) mg/dL Est Cr Clr Drug Dosing mL/min Estimated GFR (MDRD) (>60) Glucose (74-106) mg/dL Lactic Acid 2.5 H (0.4-2.0) mmol/L Calcium (8.5-10.1) mg/dL Creatine Kinase 77 (39-308) U/L Troponin I High Sens 6.9 (<=60.3) pg/mL Procalcitonin ng/mL 05/08/21 Range/Units 14:05 WBC (4.5-11.0) K/uL RBC (4.30-5.90) M/uL Hgb (12.0-15.0) g/dL Hct (40.0-54.0) % MCV (80-98) fL MCH (27-31) pg MCHC (32-36) % Plt Count (150-400) K/uL Neut % (Auto) (36-66) % Lymph % (Auto) (24-44) % Overton % (Auto) (2-6) % Eos % (Auto) (2-4) % Baso % (Auto) (0-1) % D-Dimer, Quantitative (0.0-500.0) ng/mL Puncture Site Lt radial ABG pH 7.512 H (7.350-7.450) ABG pCO2 29.8 L (35.0-42.0) mmHg ABG pO2 57.0 L (75.0-100.0) mmHg ABG HCO3 23.7 (22.0-26.0) mmol/L ABG Total CO2 20.1 L (23.0-27.0) mmol/L ABG O2 Saturation 89.9 L (95.0-98.0) % ABG O2 Content 18.6 (15.0-23.0) %vol ABG Base Excess 2.0 mm/L ABG Hemoglobin 15.1 (13.5-18.0) g/dL ABG Oxyhemoglobin 87.8 % ABG Carboxyhemoglobin 1.1 (0.0-1.6) % ABG Methemoglobin 1.2 % Petros Test Pass O2 Delivery Device Non rebr mask Oxygen Flow Rate 60.0 L Sodium (140-148) mmol/L Potassium (3.6-5.2) mmol/L Chloride (100-108) mmol/L Carbon Dioxide (21-32) mmol/L Anion Gap (5.0-14.0) mmol/L BUN (7-18) mg/dL Creatinine (0.8-1.3) mg/dL Est Cr Clr Drug Dosing mL/min Estimated GFR (MDRD) (>60) Glucose (74-106) mg/dL Lactic Acid (0.4-2.0) mmol/L Calcium (8.5-10.1) mg/dL Creatine Kinase (39-308) U/L Troponin I High Sens (<=60.3) pg/mL Procalcitonin ng/mL Ty Results Last 24 Hours: Microbiology 05/08/21 16:33 Gram Stain - Final Endotrachial Tube Med Orders - Current: Current Medications Acetaminophen (Acetaminophen 325 Mg Tab) 650 mg PO Q4H PRN PRN Reason: Pain (Mild 1-3)/fever Last Admin: 05/03/21 15:13 Dose: 650 mg Documented by: Albuterol (Albuterol 8 Gm Inhaler) 0 gm INH Q4H SHAKILA Last Admin: 05/08/21 15:01 Dose: 2 puff Documented by: Baricitinib (Baricitinib 2 Mg Tab) 4 mg PO DAILY SHAKILA Stop: 05/17/21 09:01 Last Admin: 05/08/21 08:36 Dose: 4 mg Documented by: Benzocaine/Menthol (Benzocaine/Cetylpyridinium/Menthol Lozenge) 1 lozenge MUCMEM Q1H PRN PRN Reason: Cough Last Admin: 05/06/21 14:12 Dose: 1 bryant Documented by: Dexamethasone (Dexamethasone 4 Mg/Ml Sdv) 6 mg IVPUSH Q24H [facility] Last Admin: 05/08/21 14:57 Dose: 6 mg Documented by: Enoxaparin Sodium (Enoxaparin 40 Mg/0.4 Ml Syringe) 40 mg SUBCUT Q24H [facility] Last Admin: 05/08/21 15:01 Dose: 40 mg Documented by: Guaifenesin/Codeine Phosphate (Codeine/Guaifenesin 10-100 Mg/5 Ml Syrup 5 Ml Cup) 10 ml PO Q6H PRN PRN Reason: Cough Last Admin: 05/08/21 09:03 Dose: 10 ml Documented by: Heparin Sodium (Porcine) 5,000 (units/ Sodium Chloride) 501 mls @ 5 mls/hr IV Q72H [facility] Last Admin: 05/08/21 16:36 Dose: 5 mls/hr Documented by: Meropenem 1 gm/ Sodium (Chloride) 100 mls @ 200 mls/hr IV Q8H [facility] Levofloxacin/Dextrose 750 mg/ (Premix) 150 mls @ 100 mls/hr IV Q24H [facility] Propofol (Diprivan 100 Ml) 100 mls @ 3.171 mls/hr IV TITRATE [facility]; Protocol Vancomycin HCl 2 gm/ Sodium (Chloride) 500 mls @ 250 mls/hr IV ONETIME ONE Stop: 05/08/21 20:59 Vancomycin HCl 1.5 gm/ Sodium (Chloride) 250 mls @ 166.667 mls/hr IV Q12H [facility] Lorazepam (Lorazepam 0.5 Mg Tab) 0.5 mg PO Q4H PRN PRN Reason: Dyspnea Last Admin: 05/08/21 12:20 Dose: 0.5 mg Documented by: Ondansetron HCl (Ondansetron 4 Mg/2 Ml Sdv) 4 mg IV Q4H PRN PRN Reason: Nausea/Vomiting Oxycodone HCl (Oxycodone 5 Mg Tab) 5 mg PO Q4H PRN PRN Reason: Pain (moderate 4-6) Last Admin: 05/08/21 01:36 Dose: 5 mg Documented by: Pantoprazole Sodium (Pantoprazole 40 Mg Tab.Cr) 40 mg PO ACBREAKFAST SHAKILA Last Admin: 05/08/21 08:36 Dose: 40 mg Documented by: Pantoprazole Sodium (Pantoprazole 40 Mg Vial) 40 mg IVPUSH DAILY [facility] Polyethylene Glycol (Polyethylene Glycol 3350 Powder 17 Gm Packet) 17 gm PO DAILY PRN PRN Reason: Constipation Sodium Chloride (Sodium Chloride 0.9% 10 Ml Syringe) 10 ml FLUSH ASDIRECTED PRN PRN Reason: Keep Vein Open Vancomycin HCl (Vancomycin 1 Gm Sdv) 1 gm IV .PHARMACY TO DOSE SHAKILA Discontinued Medications Furosemide (Furosemide 40 Mg/4 Ml Vial) 20 mg IVPUSH NOW ONE Stop: 05/07/21 14:35 Last Admin: 05/07/21 16:12 Dose: 20 mg Documented by: Guaifenesin/Codeine Phosphate (Codeine/Guaifenesin 10-100 Mg/5 Ml Syrup 5 Ml Cup) 5 ml PO Q6H PRN PRN Reason: Cough Last Admin: 05/03/21 21:57 Dose: 5 ml Documented by: Remdesivir 100 mg/ Sodium (Chloride) 100 mls @ 100 mls/hr IV Q24H [facility] Stop: 05/07/21 16:59 Last Admin: 05/07/21 16:12 Dose: 100 mls/hr Documented by: Remdesivir 200 mg/ Sodium (Chloride) 250 mls @ 250 mls/hr IV ONETIME ONE Stop: 05/03/21 16:59 Last Admin: 05/03/21 16:06 Dose: 250 mls/hr Documented by: Doxycycline Hyclate 100 mg/ (Sodium Chloride) 100 mls @ 100 mls/hr IV Q12H [facility] Last Admin: 05/04/21 18:55 Dose: 100 mls/hr Documented by: Ceftriaxone Sodium 1 gm/ (Sodium Chloride) 50 mls @ 100 mls/hr IV Q24H [facility] Last Admin: 05/07/21 18:00 Dose: 100 mls/hr Documented by: Doxycycline Hyclate 100 mg/ (Sodium Chloride) 100 mls @ 100 mls/hr IV Q12H [facility] Last Admin: 05/08/21 08:38 Dose: 100 mls/hr Documented by: Propofol (Diprivan 100 Ml) Confirm Administered Dose 100 mls @ as directed .ROUTE .STK-MED ONE Stop: 05/08/21 15:12 Last Admin: 05/08/21 16:38 Dose: Not Given Documented by: Propofol (Propofol 200 Mg/20 Ml Sdv) Confirm Administered Dose 200 mg .ROUTE .STK-MED ONE Stop: 05/08/21 15:26 Succinylcholine Chloride (Succinylcholine 200 Mg/10 Ml Mdv) Confirm Administered Dose 200 mg .ROUTE .STK-MED ONE Stop: 05/08/21 15:26 - Exam Quality Assessment: Supplemental Oxygen, Urine Catheter, DVT Prophylaxis Urinary Catheter Total Time: 0Days 0Hours General: Alert, Oriented, Cooperative, Severe Distress Lungs: Decreased Breath Sounds, Crackles. No: Rales, Rhonchi, Wheezing Cardiovascular: Regular Rhythm, No Murmurs, Tachycardia GI/Abdominal Exam: Soft, Non-Tender, No Organomegaly, No Distention Extremities: Non-Tender, No Pedal Edema - Patient Data Lab Results Last 24 hrs: Laboratory Results - last 24 hr 05/08/21 05/08/21 05/08/21 Range/Units 13:49 13:49 13:49 WBC 14.1 H (4.5-11.0) K/uL RBC 4.73 (4.30-5.90) M/uL Hgb 15.4 H (12.0-15.0) g/dL Hct 46.2 (40.0-54.0) % MCV 98 (80-98) fL MCH 33 H (27-31) pg MCHC 33 (32-36) % Plt Count 483 H (150-400) K/uL Neut % (Auto) 73.4 H (36-66) % Lymph % (Auto) 18.8 L (24-44) % Overton % (Auto) 6.3 H (2-6) % Eos % (Auto) 0.9 L (2-4) % Baso % (Auto) 0.6 (0-1) % D-Dimer, Quantitative (0.0-500.0) ng/mL Puncture Site ABG pH (7.350-7.450) ABG pCO2 (35.0-42.0) mmHg ABG pO2 (75.0-100.0) mmHg ABG HCO3 (22.0-26.0) mmol/L ABG Total CO2 (23.0-27.0) mmol/L ABG O2 Saturation (95.0-98.0) % ABG O2 Content (15.0-23.0) %vol ABG Base Excess mm/L ABG Hemoglobin (13.5-18.0) g/dL ABG Oxyhemoglobin % ABG Carboxyhemoglobin (0.0-1.6) % ABG Methemoglobin % Petros Test O2 Delivery Device Oxygen Flow Rate L Sodium 135 L (140-148) mmol/L Potassium 3.9 (3.6-5.2) mmol/L Chloride 97 L (100-108) mmol/L Carbon Dioxide 24 (21-32) mmol/L Anion Gap 17.9 H (5.0-14.0) mmol/L BUN 17 (7-18) mg/dL Creatinine 1.2 (0.8-1.3) mg/dL Est Cr Clr Drug Dosing 70.30 mL/min Estimated GFR (MDRD) > 60 (>60) Glucose 109 H (74-106) mg/dL Lactic Acid (0.4-2.0) mmol/L Calcium 9.0 (8.5-10.1) mg/dL Creatine Kinase (39-308) U/L Troponin I High Sens (<=60.3) pg/mL Procalcitonin 0.05 ng/mL 05/08/21 05/08/21 05/08/21 Range/Units 13:49 13:49 13:49 WBC (4.5-11.0) K/uL RBC (4.30-5.90) M/uL Hgb (12.0-15.0) g/dL Hct (40.0-54.0) % MCV (80-98) fL MCH (27-31) pg MCHC (32-36) % Plt Count (150-400) K/uL Neut % (Auto) (36-66) % Lymph % (Auto) (24-44) % Overton % (Auto) (2-6) % Eos % (Auto) (2-4) % Baso % (Auto) (0-1) % D-Dimer, Quantitative 1002.84 H (0.0-500.0) ng/mL Puncture Site ABG pH (7.350-7.450) ABG pCO2 (35.0-42.0) mmHg ABG pO2 (75.0-100.0) mmHg ABG HCO3 (22.0-26.0) mmol/L ABG Total CO2 (23.0-27.0) mmol/L ABG O2 Saturation (95.0-98.0) % ABG O2 Content (15.0-23.0) %vol ABG Base Excess mm/L ABG Hemoglobin (13.5-18.0) g/dL ABG Oxyhemoglobin % ABG Carboxyhemoglobin (0.0-1.6) % ABG Methemoglobin % Petros Test O2 Delivery Device Oxygen Flow Rate L Sodium (140-148) mmol/L Potassium (3.6-5.2) mmol/L Chloride (100-108) mmol/L Carbon Dioxide (21-32) mmol/L Anion Gap (5.0-14.0) mmol/L BUN (7-18) mg/dL Creatinine (0.8-1.3) mg/dL Est Cr Clr Drug Dosing mL/min Estimated GFR (MDRD) (>60) Glucose (74-106) mg/dL Lactic Acid 2.5 H (0.4-2.0) mmol/L Calcium (8.5-10.1) mg/dL Creatine Kinase 77 (39-308) U/L Troponin I High Sens 6.9 (<=60.3) pg/mL Procalcitonin ng/mL 05/08/21 Range/Units 14:05 WBC (4.5-11.0) K/uL RBC (4.30-5.90) M/uL Hgb (12.0-15.0) g/dL Hct (40.0-54.0) % MCV (80-98) fL MCH (27-31) pg MCHC (32-36) % Plt Count (150-400) K/uL Neut % (Auto) (36-66) % Lymph % (Auto) (24-44) % Overton % (Auto) (2-6) % Eos % (Auto) (2-4) % Baso % (Auto) (0-1) % D-Dimer, Quantitative (0.0-500.0) ng/mL Puncture Site Lt radial ABG pH 7.512 H (7.350-7.450) ABG pCO2 29.8 L (35.0-42.0) mmHg ABG pO2 57.0 L (75.0-100.0) mmHg ABG HCO3 23.7 (22.0-26.0) mmol/L ABG Total CO2 20.1 L (23.0-27.0) mmol/L ABG O2 Saturation 89.9 L (95.0-98.0) % ABG O2 Content 18.6 (15.0-23.0) %vol ABG Base Excess 2.0 mm/L ABG Hemoglobin 15.1 (13.5-18.0) g/dL ABG Oxyhemoglobin 87.8 % ABG Carboxyhemoglobin 1.1 (0.0-1.6) % ABG Methemoglobin 1.2 % Petros Test Pass O2 Delivery Device Non rebr mask Oxygen Flow Rate 60.0 L Sodium (140-148) mmol/L Potassium (3.6-5.2) mmol/L Chloride (100-108) mmol/L Carbon Dioxide (21-32) mmol/L Anion Gap (5.0-14.0) mmol/L BUN (7-18) mg/dL Creatinine (0.8-1.3) mg/dL Est Cr Clr Drug Dosing mL/min Estimated GFR (MDRD) (>60) Glucose (74-106) mg/dL Lactic Acid (0.4-2.0) mmol/L Calcium (8.5-10.1) mg/dL Creatine Kinase (39-308) U/L Troponin I High Sens (<=60.3) pg/mL Procalcitonin ng/mL Result Diagrams: 05/08/21 13:49 05/08/21 13:49 Ty Results Last 24 hrs: Microbiology 05/08/21 16:33 Gram Stain - Final Endotrachial Tube Sepsis Event Note - Evaluation Sepsis Screening Result: Severe Sepsis Risk - Focused Exam Vital Signs: Vital Signs Temp Pulse Resp BP BP BP Pulse Ox 05/08/21 16:00 99 F 16 83/52 L 94 L 05/08/21 15:04 111 H 38 H 156/84 H 88 L 05/08/21 14:35 107 H 38 H 147/84 H 86 L 05/08/21 14:24 110 H 38 H 157/90 H 89 L 05/08/21 14:00 87 L 05/08/21 13:45 81 L 05/08/21 13:30 106 H 40 H 151/72 H 61 L 05/08/21 10:51 99.5 F 91 16 145/83 H 89 L 05/08/21 09:20 20 88 L 05/08/21 07:35 98.8 F 85 20 142/76 H 85 L - Problem List Review Problem List Initiated/Reviewed/Updated: Yes - My Orders Last 24 Hours: My Active Orders 05/07/21 17:23 LORazepam [Ativan] 0.5 mg PO Q4H PRN 05/08/21 15:40 Chest 1V Frontal [CR] Stat 05/08/21 16:00 Heparin Sodium 5,000 units Sodium Chloride 0.9% [Normal Saline] 500 ml IV Q72H 05/08/21 16:33 CULTURE RESPIRATORY + SMEAR [RM] Routine 05/08/21 16:34 Mechanical Ventilation [RT Ventilator, Adult] [RC] ASDIRECTED RASS Sedation Scale [RC] Q2HR 05/08/21 16:35 Desired Level of Sedation (RASS) [AST] Click to Edit 05/08/21 16:36 NG [Gastrointestinal Tube Mgmt] [RC] ASDIRECTED 05/08/21 16:39 CULTURE BLOOD [BC] Stat CULTURE BLOOD [BC] Stat Blood Culture x2 Reflex Set [OM.PC] Urgent 05/08/21 16:45 BLOOD GAS ARTERIAL [BG] Stat Pantoprazole [ProTONIX IV] 40 mg IVPUSH DAILY propofoL [Diprivan 100 ML] 100 ml IV TITRATE 05/08/21 17:00 Meropenem [Merrem] 1 gm Sodium Chloride 0.9% [Normal Saline] 100 ml IV Q8H Vancomycin 1 gm IV .PHARMACY TO DOSE 05/08/21 17:30 Levofloxacin/Dextrose 5%-Water [Levaquin in D5W 750 MG/150 ML] 750 mg Premix Bag 1 bag IV Q24H 05/08/21 19:00 Vancomycin 2 gm Sodium Chloride 0.9% [Normal Saline] 500 ml IV ONETIME 05/09/21 05:00 Chest 1V Frontal [CR] DAILY BLOOD GAS ARTERIAL [BG] Timed CBC WITH AUTO DIFF [HEME] Timed COMPREHENSIVE METABOLIC PN,CMP [CHEM] Timed LACTIC ACID [CHEM] Timed 05/09/21 05:11 CRP [C-REACTIVE PROTEIN] [CHEM] AM D Dimer [D-DIMER QUANTITATIVE] [COAG] AM 05/09/21 07:00 Vancomycin 1.5 gm Sodium Chloride 0.9% [Normal Saline] 250 ml IV Q12H 05/10/21 05:00 Chest 1V Frontal [CR] DAILY 05/10/21 06:30 VANCOMYCIN TROUGH [CHEM] Timed 05/11/21 05:00 Chest 1V Frontal [CR] DAILY 05/12/21 05:00 Chest 1V Frontal [CR] DAILY 05/13/21 05:00 Chest 1V Frontal [CR] DAILY - Plan Plan:: ASSESSMENT AND PLAN COVID-19 INFECTION WITH BILATERAL PNEUMONIA-associated with hypoxia. Not vaccinated. Symptom onset April 25. Failed high flow humidified oxygen ther apy this afternoon requiring intubation and mechanical ventilation. -Prone positioning -Limit IV fluids -Dexamethasone 6 mg IV daily, today is day 6 -Remdesivir 200 mg IV today, followed by 100 mg IV daily for 4 days, completed 05/07 -Baricitinib 4 mg p.o. daily, today is day 5 of 14 -Empiric IV antibiotic therapy; discontinue ceftriaxone and doxycycline -Start cefepime, vancomycin, and levofloxacin -Blood and sputum cultures pending -Consider CT scan of chest with PE protocol when respiratory status has stabilized ACUTE HYPOXIC RESPIRATORY FAILURE-secondary to COVID-19 infection with pneumo smitha. Status post intubation this afternoon because of progressive failure. Improving status post intubation -Daily chest x-ray while intubated -ABGs post intubation -Ventilator settings; AC rate of 24, tidal volume of 400, PEEP of 15, FiO2 100% -Taper FiO2 after he has stabilized -IV sedation propofol -NG tube placement -Protonix 40 mg IV every 24 hours HISTORY OF ASTHMA-no wheezing noted on examination today -Albuterol inhaler as needed -Dexamethasone as above MAINTENANCE ISSUES -DVT prophylaxis; Lovenox 40 mg subcu daily -GI prophylaxis; Protonix as above -Trinh catheter; not indicated -Nutrition; n.p.o. -Nicotine dependence; not required CODE STATUS-FULL CODE ADMISSION STATUS-patient will be admitted to inpatient status, expect at least a 2 night hospital stay for evaluation and management of problems as outlined above. At the time of this admission I do not reasonably expected evaluation and management of this problem will require more than a 96 hour hospital stay. DISPOSITION-anticipate discharge to home after the hospital stay. 60 minutes of critical care time spent in the direct care and management of this patient today.
[2021-05-08] MEDS ORDERED: Levofloxacin/Dextrose 5%-Water 750 MG in Premix Bag 1 BAG IV SCH (17:30)
--- NOTE | 2021-05-08 18:28 | PCM.DCSUM1 ---
Discharge Summary - Hospital Course Brief History: Mr. Nevarez is a 60-year-old gentleman who was admitted through the outpatient unit with weakness, shortness of breath, and hypoxia, secondary to COVID-19 infection. - Discharge Data Discharge Date: 05/08/21 Discharge Disposition: DC/Tfer to Acute Hospital 02 Condition: Serious - Referral to Home Health Primary Care Physician: Darian Martinez Sr, MD - Discharge Diagnosis/Problem(s) (1) Pneumonia due to COVID-19 virus SNOMED Code(s): 358123258938319595 ICD Code: U07.1 - COVID-19; J12.82 - PNEUMONIA DUE TO CORONAVIRUS DISEASE 2018 Status: Acute Current Visit: Yes (2) Acute respiratory failure with hypoxia SNOMED Code(s): 30842902, 815108180 ICD Code: J96.01 - ACUTE RESPIRATORY FAILURE WITH HYPOXIA Status: Acute Current Visit: Yes (3) ARDS (adult respiratory distress syndrome) SNOMED Code(s): 55756481, 75940343 ICD Code: J80 - ACUTE RESPIRATORY DISTRESS SYNDROME Status: Acute Current Visit: Yes - Patient Summary/Data Hospital Course: Mr. Nevarez is a 60-year-old gentleman who was admitted through the care professional unit with a 6-day history of progressive weakness and shortness of breath secondary to COVID-19 infection. He first experienced symptoms on April 27 with cough and congestion as well as myalgias. On the third he did take a [id number] Covid test that was positive. Symptoms progressed through the weekend and he arranged for monoclonal antibody infusion in the outpatient area. On evaluation when he came in for an monoclonal antibody infusion he was found to be hypoxic with oxygen saturation of 81% on room air and while at rest. Monoclonal antibody infusion was canceled and I was asked to see him for an assessment for hospital admission. Laboratory tests obtained on admission included a normal white blood cell count, marked elevation in CRP, mild elevation in D-dimer. Chest x-ray shows bibasilar groundglass infiltrates consistent with COVID-19 infection. On admission he was given supplemental oxygen and started on therapy with remdesivir and dexamethasone. Over the next 24 hours of hospitalization his oxygen requirements increased significantly to the point that he required high flow humidified oxygen. Because of this he was started on baricitinib. He was also started on empiric IV antibiotic therapy with doxycycline and ceftriaxone. Over the next 4 days of hospitalization he continued to require high flow humidified oxygen. On the day of transfer he developed increased respiratory compromise with saturations in the upper 70s and low 80s associated with an increase in his respiratory rate to the mid 30s. Despite additional oxygen he did not recover. After discussion with the patient he agreed to intubation and mechanical ventilation. He was intubated by the anesthesia service and an arterial line was also placed. He is stabilized on the ventilator, current settings; assist control with a rate of 24, tidal volume of 400, FiO2 100%, and PEEP of 15. Antibiotic coverage was expanded, doxycycline and ceftriaxone were discontinued. He was started on vancomycin, meropenem, and levofloxacin. Chest x-ray showed appropriate position of the endotracheal tube as well as bilateral pulmonary infiltrates. He has been accepted in transfer at [facility] by Dr. Del Castillo. Will be transferred by air. - Patient Instructions Diet: NPO Other/Special Instructions: Transfer by air to [facility] - Discharge Plan *PRESCRIPTION DRUG MONITORING PROGRAM REVIEWED*: Not Applicable *COPY OF PRESCRIPTION DRUG MONITORING REPORT IN PATIENT ELIAS: Not Applicable Home Medications: Home Meds Omeprazole 40 mg PO DAILY 05/03/21 [History] Baricitinib [Olumiant] 4 mg PO DAILY tablet 05/08/21 [Rx] Enoxaparin [Lovenox] 40 mg SUBCUT Q24H syringe 05/08/21 [Rx] Levofloxacin/Dextrose 5%-Water [Levaquin in D5W 750 MG/150 ML] 750 mg IV Q24H bag 05/08/21 [Rx] Meropenem [Merrem] 1 gm IV Q8H sdv 05/08/21 [Rx] Pantoprazole [ProTONIX IV] 40 mg IVPUSH DAILY vial 05/08/21 [Rx] Vancomycin 1 gm IV .PHARMACY TO DOSE sdv 05/08/21 [Rx] Vancomycin 1.5 gm IV Q12H sdv 05/08/21 [Rx] dexAMETHasone [Decadron] 6 mg IVPUSH Q24H sdv 05/08/21 [Rx] propofoL [Diprivan 100 ML] See Protocol IV TITRATE vial 05/08/21 [Rx] - Discharge Summary/Plan Comment DC Time >30 min.: Yes Total # of Minutes for Discharge Time: 40 - Patient Data Vitals - Most Recent: Last Vital Signs Temp 97.2 F 05/08/21 17:00 Pulse 94 05/08/21 18:00 Resp 27 H 05/08/21 18:00 BP 115/73 05/08/21 18:00 Pulse Ox 96 05/08/21 18:00 Weight - Most Recent: 233 lb I&O - Last 24 hours: Intake & Output 05/08/21 05/08/21 05/08/21 06:59 14:59 22:59 Intake Total 240 298 Output Total 350 100 200 Balance -110 -100 98 Lab Results - Last 24 hrs: Laboratory Results - last 24 hr 05/08/21 05/08/21 05/08/21 Range/Units 13:49 13:49 13:49 WBC 14.1 H (4.5-11.0) K/uL RBC 4.73 (4.30-5.90) M/uL Hgb 15.4 H (12.0-15.0) g/dL Hct 46.2 (40.0-54.0) % MCV 98 (80-98) fL MCH 33 H (27-31) pg MCHC 33 (32-36) % Plt Count 483 H (150-400) K/uL Neut % (Auto) 73.4 H (36-66) % Lymph % (Auto) 18.8 L (24-44) % Day % (Auto) 6.3 H (2-6) % Eos % (Auto) 0.9 L (2-4) % Baso % (Auto) 0.6 (0-1) % D-Dimer, Quantitative (0.0-500.0) ng/mL Puncture Site ABG pH (7.350-7.450) ABG pCO2 (35.0-42.0) mmHg ABG pO2 (75.0-100.0) mmHg ABG HCO3 (22.0-26.0) mmol/L ABG Total CO2 (23.0-27.0) mmol/L ABG O2 Saturation (95.0-98.0) % ABG O2 Content (15.0-23.0) %vol ABG Base Excess mm/L ABG Hemoglobin (13.5-18.0) g/dL ABG Oxyhemoglobin % ABG Carboxyhemoglobin (0.0-1.6) % ABG Methemoglobin % Petros Test O2 Delivery Device Oxygen Flow Rate L Sodium 135 L (140-148) mmol/L Potassium 3.9 (3.6-5.2) mmol/L Chloride 97 L (100-108) mmol/L Carbon Dioxide 24 (21-32) mmol/L Anion Gap 17.9 H (5.0-14.0) mmol/L BUN 17 (7-18) mg/dL Creatinine 1.2 (0.8-1.3) mg/dL Est Cr Clr Drug Dosing 70.30 mL/min Estimated GFR (MDRD) > 60 (>60) Glucose 109 H (74-106) mg/dL Lactic Acid (0.4-2.0) mmol/L Calcium 9.0 (8.5-10.1) mg/dL Creatine Kinase (39-308) U/L Troponin I High Sens (<=60.3) pg/mL Procalcitonin 0.05 ng/mL 05/08/21 05/08/21 05/08/21 Range/Units 13:49 13:49 13:49 WBC (4.5-11.0) K/uL RBC (4.30-5.90) M/uL Hgb (12.0-15.0) g/dL Hct (40.0-54.0) % MCV (80-98) fL MCH (27-31) pg MCHC (32-36) % Plt Count (150-400) K/uL Neut % (Auto) (36-66) % Lymph % (Auto) (24-44) % Day % (Auto) (2-6) % Eos % (Auto) (2-4) % Baso % (Auto) (0-1) % D-Dimer, Quantitative 1002.84 H (0.0-500.0) ng/mL Puncture Site ABG pH (7.350-7.450) ABG pCO2 (35.0-42.0) mmHg ABG pO2 (75.0-100.0) mmHg ABG HCO3 (22.0-26.0) mmol/L ABG Total CO2 (23.0-27.0) mmol/L ABG O2 Saturation (95.0-98.0) % ABG O2 Content (15.0-23.0) %vol ABG Base Excess mm/L ABG Hemoglobin (13.5-18.0) g/dL ABG Oxyhemoglobin % ABG Carboxyhemoglobin (0.0-1.6) % ABG Methemoglobin % Petros Test O2 Delivery Device Oxygen Flow Rate L Sodium (140-148) mmol/L Potassium (3.6-5.2) mmol/L Chloride (100-108) mmol/L Carbon Dioxide (21-32) mmol/L Anion Gap (5.0-14.0) mmol/L BUN (7-18) mg/dL Creatinine (0.8-1.3) mg/dL Est Cr Clr Drug Dosing mL/min Estimated GFR (MDRD) (>60) Glucose (74-106) mg/dL Lactic Acid 2.5 H (0.4-2.0) mmol/L Calcium (8.5-10.1) mg/dL Creatine Kinase 77 (39-308) U/L Troponin I High Sens 6.9 (<=60.3) pg/mL Procalcitonin ng/mL 05/08/21 05/08/21 Range/Units 14:05 17:15 WBC (4.5-11.0) K/uL RBC (4.30-5.90) M/uL Hgb (12.0-15.0) g/dL Hct (40.0-54.0) % MCV (80-98) fL MCH (27-31) pg MCHC (32-36) % Plt Count (150-400) K/uL Neut % (Auto) (36-66) % Lymph % (Auto) (24-44) % Day % (Auto) (2-6) % Eos % (Auto) (2-4) % Baso % (Auto) (0-1) % D-Dimer, Quantitative (0.0-500.0) ng/mL Puncture Site Lt radial Rt radial ABG pH 7.512 H 7.364 (7.350-7.450) ABG pCO2 29.8 L 45.1 H (35.0-42.0) mmHg ABG pO2 57.0 L 121.0 H (75.0-100.0) mmHg ABG HCO3 23.7 25.1 (22.0-26.0) mmol/L ABG Total CO2 20.1 L 22.0 L (23.0-27.0) mmol/L ABG O2 Saturation 89.9 L 97.2 (95.0-98.0) % ABG O2 Content 18.6 20.4 (15.0-23.0) %vol ABG Base Excess 2.0 -0.1 mm/L ABG Hemoglobin 15.1 14.9 (13.5-18.0) g/dL ABG Oxyhemoglobin 87.8 96.4 % ABG Carboxyhemoglobin 1.1 < 0.5 (0.0-1.6) % ABG Methemoglobin 1.2 0.9 % Petros Test Pass Pass O2 Delivery Device Non rebr mask Ventilator Oxygen Flow Rate 60.0 L Sodium (140-148) mmol/L Potassium (3.6-5.2) mmol/L Chloride (100-108) mmol/L Carbon Dioxide (21-32) mmol/L Anion Gap (5.0-14.0) mmol/L BUN (7-18) mg/dL Creatinine (0.8-1.3) mg/dL Est Cr Clr Drug Dosing mL/min Estimated GFR (MDRD) (>60) Glucose (74-106) mg/dL Lactic Acid (0.4-2.0) mmol/L Calcium (8.5-10.1) mg/dL Creatine Kinase (39-308) U/L Troponin I High Sens (<=60.3) pg/mL Procalcitonin ng/mL RONALD Results - Last 24 hrs: Microbiology 05/08/21 16:33 Gram Stain - Final Endotrachial Tube Med Orders - Current: Current Medications Acetaminophen (Acetaminophen 325 Mg Tab) 650 mg PO Q4H PRN PRN Reason: Pain (Mild 1-3)/fever Last Admin: 05/03/21 15:13 Dose: 650 mg Documented by: Albuterol (Albuterol 8 Gm Inhaler) 0 gm INH Q4H SHAKILA Last Admin: 05/08/21 15:01 Dose: 2 puff Documented by: Baricitinib (Baricitinib 2 Mg Tab) 4 mg PO DAILY SHAKILA Stop: 05/17/21 09:01 Last Admin: 05/08/21 08:36 Dose: 4 mg Documented by: Benzocaine/Menthol (Benzocaine/Cetylpyridinium/Menthol Lozenge) 1 lozenge MUCMEM Q1H PRN PRN Reason: Cough Last Admin: 05/06/21 14:12 Dose: 1 bryant Documented by: Dexamethasone (Dexamethasone 4 Mg/Ml Sdv) 6 mg IVPUSH Q24H [facility] Last Admin: 05/08/21 14:57 Dose: 6 mg Documented by: Enoxaparin Sodium (Enoxaparin 40 Mg/0.4 Ml Syringe) 40 mg SUBCUT Q24H SHAKILA Last Admin: 05/08/21 15:01 Dose: 40 mg Documented by: Guaifenesin/Codeine Phosphate (Codeine/Guaifenesin 10-100 Mg/5 Ml Syrup 5 Ml Cup) 10 ml PO Q6H PRN PRN Reason: Cough Last Admin: 05/08/21 09:03 Dose: 10 ml Documented by: Heparin Sodium (Porcine) 5,000 (units/ Sodium Chloride) 501 mls @ 5 mls/hr IV Q72H [facility] Last Admin: 05/08/21 16:36 Dose: 5 mls/hr Documented by: Meropenem 1 gm/ Sodium (Chloride) 100 mls @ 200 mls/hr IV Q8H [facility] Last Admin: 05/08/21 17:00 Dose: 200 mls/hr Documented by: Levofloxacin/Dextrose 750 mg/ (Premix) 150 mls @ 100 mls/hr IV Q24H [facility] Last Admin: 05/08/21 17:32 Dose: 100 mls/hr Documented by: Propofol (Diprivan 100 Ml) 100 mls @ 3.171 mls/hr IV TITRATE [facility]; Protocol Last Titration: 05/08/21 17:06 Dose: 50 mcg/kg/min, 31.706 mls/hr Documented by: Vancomycin HCl 2 gm/ Sodium (Chloride) 500 mls @ 250 mls/hr IV ONETIME ONE Stop: 05/08/21 20:59 Vancomycin HCl 1.5 gm/ Sodium (Chloride) 250 mls @ 166.667 mls/hr IV Q12H [facility] Lorazepam (Lorazepam 0.5 Mg Tab) 0.5 mg PO Q4H PRN PRN Reason: Dyspnea Last Admin: 05/08/21 12:20 Dose: 0.5 mg Documented by: Ondansetron HCl (Ondansetron 4 Mg/2 Ml Sdv) 4 mg IV Q4H PRN PRN Reason: Nausea/Vomiting Oxycodone HCl (Oxycodone 5 Mg Tab) 5 mg PO Q4H PRN PRN Reason: Pain (moderate 4-6) Last Admin: 05/08/21 01:36 Dose: 5 mg Documented by: Pantoprazole Sodium (Pantoprazole 40 Mg Tab.Cr) 40 mg PO ACBREAKFAST [facility] Last Admin: 05/08/21 08:36 Dose: 40 mg Documented by: Pantoprazole Sodium (Pantoprazole 40 Mg Vial) 40 mg IVPUSH DAILY [facility] Last Admin: 05/08/21 16:55 Dose: 40 mg Documented by: Polyethylene Glycol (Polyethylene Glycol 3350 Powder 17 Gm Packet) 17 gm PO DAILY PRN PRN Reason: Constipation Sodium Chloride (Sodium Chloride 0.9% 10 Ml Syringe) 10 ml FLUSH ASDIRECTED PRN PRN Reason: Keep Vein Open Vancomycin HCl (Vancomycin 1 Gm Sdv) 1 gm IV .PHARMACY TO DOSE [facility] Discontinued Medications Furosemide (Furosemide 40 Mg/4 Ml Vial) 20 mg IVPUSH NOW ONE Stop: 05/07/21 14:35 Last Admin: 05/07/21 16:12 Dose: 20 mg Documented by: Guaifenesin/Codeine Phosphate (Codeine/Guaifenesin 10-100 Mg/5 Ml Syrup 5 Ml Cup) 5 ml PO Q6H PRN PRN Reason: Cough Last Admin: 05/03/21 21:57 Dose: 5 ml Documented by: Remdesivir 100 mg/ Sodium (Chloride) 100 mls @ 100 mls/hr IV Q24H [facility] Stop: 05/07/21 16:59 Last Admin: 05/07/21 16:12 Dose: 100 mls/hr Documented by: Remdesivir 200 mg/ Sodium (Chloride) 250 mls @ 250 mls/hr IV ONETIME ONE Stop: 05/03/21 16:59 Last Admin: 05/03/21 16:06 Dose: 250 mls/hr Documented by: Doxycycline Hyclate 100 mg/ (Sodium Chloride) 100 mls @ 100 mls/hr IV Q12H [facility] Last Admin: 05/04/21 18:55 Dose: 100 mls/hr Documented by: Ceftriaxone Sodium 1 gm/ (Sodium Chloride) 50 mls @ 100 mls/hr IV Q24H [facility] Last Admin: 05/07/21 18:00 Dose: 100 mls/hr Documented by: Doxycycline Hyclate 100 mg/ (Sodium Chloride) 100 mls @ 100 mls/hr IV Q12H [facility] Last Admin: 05/08/21 08:38 Dose: 100 mls/hr Documented by: Propofol (Diprivan 100 Ml) Confirm Administered Dose 100 mls @ as directed .ROUTE .STK-MED ONE Stop: 05/08/21 15:12 Last Admin: 05/08/21 16:38 Dose: Not Given Documented by: Propofol (Propofol 200 Mg/20 Ml Sdv) Confirm Administered Dose 200 mg .ROUTE .STK-MED ONE Stop: 05/08/21 15:26 Succinylcholine Chloride (Succinylcholine 200 Mg/10 Ml Mdv) Confirm Administered Dose 200 mg .ROUTE .STK-MED ONE Stop: 05/08/21 15:26 - Exam Quality Assessment: Reports: Supplemental Oxygen (Ventilator), Urine Catheter, DVT Prophylaxis General: Reports: Sedated, Lethargic Lungs: Reports: Crackles. Denies: Rales, Rhonchi, Wheezing Cardiovascular: Reports: Regular Rate, Regular Rhythm, No Murmurs GI/Abdominal Exam: Soft, Non-Tender, No Organomegaly, No Distention Extremities: Non-Tender, No Pedal Edema
[2021-05-08] MEDS ORDERED: Vancomycin 2 GM in Sodium Chloride 0.9% 500 ML IV ONE (19:00)
--- NOTE | 2021-05-09 10:01 | CR ---
CHEST: Portable 05/08/2021 at 3:57 PM CLINICAL HISTORY:Postintubation COMPARISON:05/03/2021 FINDINGS: Patient has been intubated. Tip of the endotracheal tube is 5 cm from the [place]. There is less than optimal aspiration. Heart is enlarged. There are bilateral pulmonary infiltrates. No effusion is seen. IMPRESSION: Persistent bilateral pulmonary infiltrates Endotracheal intubation
== END 2021-05-08 19:50 | DRG 208 ==
LOC: JP.IVTHER 12:56 → JP.2SS 14:46 → JP.ICU 05-08 15:45
PROVIDERS: ADMIT Hospitalist; ATTEND Hospitalist
PROC: XW033E5 Introduction of Remdesivir Anti-infective into Peripheral Vein, Percutaneous Approach, New Technology Group 5 (ICD-10-PCS; principal; 2021-05-03)
PROC: XW0DXM6 Introduction of Baricitinib into Mouth and Pharynx, External Approach, New Technology Group 6 (ICD-10-PCS; 2021-05-03)
PROC: 3E0333Z Introduction of Anti-inflammatory into Peripheral Vein, Percutaneous Approach (ICD-10-PCS; 2021-05-03)
PROC: 5A1935Z Respiratory Ventilation, Less than 24 Consecutive Hours (ICD-10-PCS; 2021-05-08)
PROC: 0BH17EZ Insertion of Endotracheal Airway into Trachea, Via Natural or Artificial Opening (ICD-10-PCS; 2021-05-08)
PROC: 03HY32Z Insertion of Monitoring Device into Upper Artery, Percutaneous Approach (ICD-10-PCS; 2021-05-08)
PROC: 4A133B1 Monitoring of Arterial Pressure, Peripheral, Percutaneous Approach (ICD-10-PCS; 2021-05-08)
PROC: 4A133J1 Monitoring of Arterial Pulse, Peripheral, Percutaneous Approach (ICD-10-PCS; 2021-05-08)
DX: U07.1 COVID-19 (principal); J12.82 Pneumonia due to coronavirus disease 2019; J80 Acute respiratory distress syndrome; J45.909 Unspecified asthma, uncomplicated; Z79.899 Other long term (current) drug therapy
CPT/HCPCS: 36415; 36600; 51702; 71045; 71045-26; 80048; 80053; 82550; 82803; 83605; 83735; 84145; 84484; 85025; 85379; 86140; 87040; 87070; 87205; 94002; 94640; 94762; A9270-GY; C9113; J0330; J0696; J1100; J1644; J1650; J1940; J1956; J2185; J2704; J3370; J3490; J7040; J7050